=== PATIENT | female | born 1935 | race Caucasian/White ===

== ENCOUNTER 2019-03-29 08:05 | Inpatient (IN) ==
[~2019-03-29 08:05] MED LIST: DILAUDID IV ONE; ZOFRAN IV ONE
--- NOTE | 2019-03-29 08:15 | PROVIDER DOCUMENTATION ---
HPI-General Adult - General Chief Complaint: Fall Stated Complaint: BROKEN WRIST Time Seen by Provider: 03/29/19 08:05 Source: patient, family, EMS Allergies/Adverse Reactions: Patient Allergies Allergy/AdvReac Type Severity Reaction Status Date / Time No Known Allergies Allergy Verified 03/29/19 08:03 Home Medications: Home Medication List Medication Instructions Recorded Confirmed Last Taken Type Digoxin [Digitek] 125 mcg PO DAILY 04/02/18 03/29/19 Unknown History Diltiazem HCl [Diltiazem ER] 180 mg PO DAILY 04/02/18 03/29/19 Unknown History Hydrochlorothiazide 12.5 mg PO DAILY 04/02/18 03/29/19 Unknown History Montelukast Sodium [Singulair] 10 mg PO DAILY 04/02/18 03/29/19 Unknown History Warfarin Sodium [Jantoven] 1.5 tab PO DAILY 07/25/18 03/29/19 Unknown History - History of Present Illness -Gen Adult Nature of Presenting Problems: PT IS A 83 Y/O FEMALE WHO PRESENTS WITH C/O FALL AND OPEN FRACTURE OF R FOREARM. PER THE PT AND EMS, PT FELL AT HOME AND TRIED TO CATCH HER FALL AND PUT ALL HER WEIGHT ON THE R HAND. PT HAS A OPEN BLEEDING WOUND ON THE DISTAL R FOREARM. THE EMS WAS TRING TO PU A SPLINT AND DURING THE PROCESS THE PT GOT A MINOR CUT ON HER R EYEBROW. DENIES ANY HEAD INJURY OR LOC. DENIES ANY NECK PAIN OR BACK PAIN OR CP OR SOB. THE EMS OBSERVED HER R LEG IS SHORTENED AND ROTATED, BUT THE PT WAS ABLE TO WALK TO THE WHEEL CHAIR. PT WAS ADMINISTERED 100 MCG OF F[place]L ENROUTE. DENIES ANY NAUSEA OR VOMITING OR DIZZINESS OR LIGHTHEADEDNESS. Location of Pain/Injury: reports: upper extremity (R FOREARM, WRIST), lower extremity (R HIP) Pain Radiation: reports: no radiation Quality of Pain: reports: sharp Severity: reports: severe Onset/Duration: reports: just prior to arrival Timing: reports: still present Context/Activities at Onset: reports: light activity Modifying Factors: improves with: immobilization, rest. worse with: movement Associated Symptoms: denies: chest pain, cough, fever/chills, genitourinary problems, headaches, heartburn, nausea, shortness of breath, vomiting Similar Symptoms Previously?: No Recently seen or treated by another doctor?: No Review of Systems - Adult - REVIEW OF SYSTEMS - ADULT ROS:: ROS per family Constitutional: reports: no symptoms reported Eyes: reports: no symptoms reported Ears, Nose, Mouth & Throat: reports: no symptoms reported Cardiovascular: reports: no symptoms reported Respiratory: reports: no symptoms reported Gastrointestinal: reports: no symptoms reported Genitourinary: reports: no symptoms reported Musculoskeletal: reports: see HPI Integumentary: reports: see HPI Neurological: reports: no symptoms reported Psychiatric: reports: no symptoms reported Endocrine: reports: no symptoms reported Hematologic/Lymphatic: reports: no symptoms reported Allergic/Immunologic: reports: no symptoms reported Past History - Adult - PAST MEDICAL HISTORY-ADULT Review of Records: reports: Old Records Reviewed, Nursing Assessment Review, Medications Reviewed, Social history reviewed & non-contributory. Major Childhood Illnesses: reports: denies history Cardiovascular: reports: A-Fib, HTN Respiratory: reports: denies history Gastrointestinal: reports: cancer (colon) Obstetrical/Gynecological: reports: denies history Genitourinary: reports: denies history Musculoskeletal: reports: denies history Neurological: reports: Alzheimer's, dementia Endocrine/Immune: reports: denies history Other Conditions: reports: denies history - PRIOR SURGERIES/PROCEDURES Surgical/Procedure History: reports: appendectomy, hernia repair - IMMUNIZATION STATUS Childhood Immunizations: See Nurse Assessment Flu Vaccine: See Nurse Assessment - FAMILY HISTORY Family History: reviewed, not pertinent Physical Exam-General - PHYSICAL EXAM-ADULT Initial Vital Signs Reviewed: Yes - CONSTITUTIONAL General Appearance: severe distress - EYES Eyes: PERRL/EOMI - HEAD, EARS, NOSE, MOUTH & THROAT HENMT: normocephalic/atraumatic, moist mucous membranes, normal ENT inspection, TMs normal, pharynx normal - NECK Neck: non-tender, full range of motion, supple - RESPIRATORY Respiratory: chest non-tender, lungs clear, normal breath sounds, no respiratory distress, no accessory muscle use - CARDIOVASCULAR Cardiovascular: normal peripheral pulses, regular rate, rhythm, no edema, no murmur - GASTROINTESTINAL (ABDOMEN) Abdominal Exam: non tender, soft - MUSCULOSKELETAL Back Exam: no vertebral tenderness Extremity: other (DEFORMITY OF R FOREARM WITH OPEN FRACTURE. DECREASED ROM IN THE R HIP. R LEG SHORTENED AND EXTERNALLY ROTATED.) Peripheral Pulses: radial (R): 2+, radial (L): 2+, dorsalis-pedis (R): 2+, dorsalis-pedis (L): 2+ - SKIN Integumentary: ecchymosis, swelling, other (HEMATOMA AND LACERATION/PUNCTURE WOUND WITH BONE STICKING OUT OF IT AND OOZING OF BLOOD OF THE R DISTAL FOREARM.) - NEUROLOGIC Neurologic: grossly normal - PSYCHIATRIC Psych/Mental Status: normal mood/affect Progress - PLAN OF CARE/RESULTS Progress/Plan/Lab Results: Vital Signs - 8 hr 03/29/19 08:02 Temperature 97.8 F Pulse Rate 87 Respiratory Rate 18 Blood Pressure 161/112 O2 Sat by Pulse Oximetry 97 Orders Category Date Time Status Nursing- Obtain EKG ONCE Care 03/29/19 07:58 Active WRIST COMPLETE RIGHT [RAD] Stat Exams 03/29/19 07:58 Ordered XRAY HIP W/PELVIS BILAT 3-4VWS [RAD] Stat Exams 03/29/19 08:13 Ordered CBC WITH ELECTRONIC DIFF [HEME] Stat Lab 03/29/19 07:58 Uncollected COMPREHENSIVE METABOLIC PANEL [CHEM] Stat Lab 03/29/19 07:58 Uncollected PROTIME WITH INR [COAG] Stat Lab 03/29/19 07:58 Uncollected PTT [COAG] Stat Lab 03/29/19 07:58 Uncollected Hydromorphone [Dilaudid] Med 03/29/19 08:03 Discontinued 1 mg IV NOW ONE Ondansetron [Zofran] Med 03/29/19 08:03 Discontinued 4 mg IV NOW ONE EKG [EKG] Stat Ther 03/29/19 07:58 Ordered Result Diagrams: 03/29/19 08:48 03/29/19 08:48 - CONSULTS/PCP/HOSPITALIST Notification #1 *Consult/PCP/Hospitalist*: DR BREWSTER Time Discussed: 08:55 Consult Disposition: Admit (ADVISED TO ADMIT TO HOSPITALIST.) #2 Consult: DR DUMONT Time Discussed: 09:09 Consult Disposition: Will see in ED #3 Consult: DR BREWSTER Time Discussed: 09:20 Reason/Comments: D/W DR BREWSTER, RECOMMENDED NOT TO REDUCE IF NV INTACT, SPLINT AND TRANSFER Procedures - SPLINTING Right Upper Extremity Pre-Procedure Neurovascular Exam: Intact Pre-Fabricated Splint: Arm Sling Splint Application (Hand-Made): Orthoglass, Sugar-Tong Applied By: ED Nurse Assisted By: ED Nurse Post Procedure Neurovascular Exam: Intact Departure - Departure Date of Disposition Decision: 03/29/19 Time of Disposition Decision: 09:10 DIAGNOSIS: Fx radius/ulna shaft-open, Fracture of neck of right femur Disposition: ADMITTED INPATIENT 09 Certified Medical Emergency: Emergent Condition: Stable - Critical Care Note This patient required my direct & personal management of CC.: No Attestation - Physician/ KARLY Attestation Patient care was provided by Advanced Practice Provider:: No The physician spent face to face time with patient:: Yes Advanced Practice Provider documentation review:: Supervising physician onsite and consulted in the evaluation and care of this patient. The physician did have a face to face encounter with the patient.
[2019-03-29] MEDS ORDERED: KEFZOL 2 GM/D5W 2 GM/50 ML IVPB IV ONE (08:49)
[2019-03-29] MEDS ORDERED: DILAUDID IV ONE (08:51)
--- NOTE | 2019-03-29 08:53 | Diag Imaging Result Doc PS360 ---
EXAM: XRAY HIP W/PELVIS BILAT 3-4VWS HISTORY: fall TECHNIQUE: Five views COMPARISON: None. FINDINGS: There is a right femoral neck fracture with varus angulation. No dislocation. No left hip fracture. There is osteopenia. There is degenerative arthropathy lower lumbar spine. Moderate constipation. IMPRESSION: Right femoral neck fracture. Electronically signed by Luna Cai 03/29/2019 8:51 AM
[2019-03-29] MEDS ORDERED: KEFZOL ONE (08:55)
[2019-03-29] MEDS ORDERED: KEFZOL 1 GM/D5W 0 GM/0 ML IVPB ONE (08:56)
--- NOTE | 2019-03-29 08:58 | Diag Imaging Result Doc PS360 ---
EXAM: WRIST COMPLETE RIGHT HISTORY: trauma TECHNIQUE: Two views COMPARISON: None. FINDINGS: There is a comminuted, open fracture of the distal radius and ulna with severe deformity. There is marked dorsal and lateral displacement of the distal fracture fragments. No dislocation of the wrist. IMPRESSION: Severely displaced, comminuted, open fractures of the distal radius and ulna. Electronically signed by Luna Cai 03/29/2019 8:55 AM
--- NOTE | 2019-03-29 09:00 | Diag Imaging Result Doc PS360 ---
EXAM: CHEST-1 VIEW HISTORY: fall TECHNIQUE: Single supine view chest x-ray COMPARISON: 07/25/2018 FINDINGS: There is cardiomegaly and mild fibrosis. Pulmonary vasculature is not congested. No infiltrate, effusion, or pneumothorax is appreciated. No obvious rib fractures. IMPRESSION: No acute cardiopulmonary abnormality is identified. Electronically signed by Luna Cai 03/29/2019 8:58 AM
[2019-03-29 09:12] LABS: BASO# 0.06 X1000 (0.0-0.2); BASO% 0.4 % (0.0-0.8); EOS# 0.36 X1000 (0.0-0.7); EOS% 2.4 % (0.0-10.0); HEMOGLOBIN 13.1 g/dL (12.0-16.0); IMM GRAN# 0.04 X1000 (0.0-0.04); IMM GRAN% 0.3 % (0.0-0.5); LYMPH# 2.63 X1000 (1.2-3.4); LYMPH% 17.7 % (20.5-51.1); MCH 30.3 PG (27-31); MCHC 33.6 g/dL (33-37); MCV 90.1 FL (81-99); MONO# 0.83 X1000 (0.11-0.59); MONO% 5.6 % (1.7-9.3); MPV 10.9 FL (7.4-10.4); NEUT# 10.96 X1000 (1.4-6.5); NEUT% 73.6 % (42.2-75.2); PLT 222 X1000 (130-400); RBC 4.33 XMIL (4.2-5.4); RDW 14.2 % (11.5-14.5); WBC 14.88 X1000 (4.8-10.8)
[2019-03-29 09:24] LABS: AGAP 12; ALBUMIN 4.1 g/dL (3.5-5.0); ALKALINE PHOSPHATASE 61 U/L (32-104); BUN 24 mg/dL (8-22); CALCIUM 9.3 mg/dL (8.8-10.2); CHLORIDE 103 mmol/L (98-107); COSMO 285; CREATININE 0.6 mg/dL (0.5-0.9); ESTIMATED GFR > 60; GLUCOSE 119 mg/dL (70-104); GOT 25 U/L (10-30); GPT 16 U/L (10-36); POTASSIUM 4.6 mmol/L (3.5-5.1); SODIUM 140 mmol/L (136-145); TCO2 25 mmol/L (25-35); TOTAL PROTEIN 7.1 g/dL (6.3-8.3)
[2019-03-29 09:29] LABS: INR 2.52; PROTIME 28.4 Seconds (11.0-16.0)
--- NOTE | 2019-03-29 09:37 | EKG Report ---
Test Performed on : 03/29/2019 09:05:41 AM Test Reason : surgery clearance Blood Pressure : / mmHG Vent. Rate : 096 BPM Atrial Rate : 102 BPM P-R Int : 000 ms QRS Dur : 106 ms QT Int : 344 ms P-R-T Axes : 000 063 244 degrees QTc Int : 434 ms Undetermined rhythm Marked ST abnormality, possible inferior subendocardial injury Abnormal ECG When compared with ECG of 25-JUL-2018 13:52, Current undetermined rhythm precludes rhythm comparison, needs review ST now depressed in Anterior leads Unconfirmed Result
--- NOTE | 2019-03-29 09:38 | ED EKG INTERP ---
This chart was entered by Jelly Whitney Scribe, acting as scribe for Cinthya Day MD. EKG Interpretation - EKG Time of EKG reading by physician:: 09:10 EKG Read and Signed by:: Cinthya Day EKG Interpretation (*Must complete 3 of following elements*): Abnormal Rate: 96 Rhythm: afib [place]: normal QRS: normal Prior EKG Comparison: unchanged from prior (03/29/19) Comments: marked st abnormality, poss inferior subendocardial injury Attestation - Physician/ KARLY Attestation Patient care was provided by Advanced Practice Provider:: No The physician spent face to face time with patient:: Yes Advanced Practice Provider documentation review:: Supervising physician onsite and consulted in the evaluation and care of this patient. The physician did have a face to face encounter with the patient. This chart was documented by the indicated scribe, (Jelly Whitney Scribe) and accurately reflects the services I performed and decisions made by me, Cinthya Day MD, as attested by the provider's signature.
[2019-03-29] MEDS ORDERED: VITAMIN K 10 MG in NS 50 ML IV ONE (10:24)
[2019-03-29] MEDS ORDERED: ZOFRAN IV PRN (10:24)
[2019-03-29] MEDS ORDERED: NS 1,000 ML IV SCH (10:30)
[2019-03-29] MEDS: PROTONIX IV SCH (10:30)
[2019-03-29] MEDS ORDERED: SODIUM CHLORIDE 0.9% INJ SCH (10:30)
[2019-03-29] MEDS ORDERED: TYLENOL PO PRN (11:39)
--- NOTE | 2019-03-29 11:40 | HISTORY AND PHYSICAL ---
CHIEF COMPLAINT: Fall, right wrist and right hip pain. HISTORY OF PRESENT ILLNESS: This is an 83-year-old female with a history of chronic atrial fibrillation, colon cancer, congestive heart failure, COPD, and hypertension. She presents to the emergency room after falling, complaining of right wrist and right hip pain. She was found to have an open, severely displaced comminuted open fracture to the distal radius and ulna, as well as a right femoral neck fracture. She denied any syncope, any chest pain, palpitations, any dizziness, any loss of consciousness. PAST MEDICAL HISTORY: 1. Chronic atrial fibrillation, on chronic anticoagulation. 2. Colon cancer. 3. Chronic obstructive pulmonary disease. 4. Congestive heart failure. 5. Hyperlipidemia. 6. Hypertension. PAST SURGICAL HISTORY: Appendectomy, hysterectomy, hernia repair, colon resection with removal of abdominal mass. SOCIAL HISTORY: She denies any alcohol, tobacco, or illicit drug use. ALLERGIES: No known drug allergies. HOME MEDICATIONS: 1. Digoxin 125 mcg p.o. daily. 2. Cardizem CD 180 mg p.o. daily. 3. Hydrochlorothiazide 12.5 mg p.o. daily. 4. Jantoven 4.5 mg p.o. daily. REVIEW OF SYSTEMS: Discussed with patient with pertinent positives as stated in the HPI. She denied any syncope or dizziness, any chest pain or palpitations, any shortness of breath, cough, fever, chills, night sweats, any nausea, vomiting, diarrhea, constipation, black or bloody vomitus or stools, any hematuria, dysuria, frequency, urgency. PHYSICAL EXAMINATION: GENERAL: This is an 83-year-old female who is lying in the bed, sedated, and in no distress. VITAL SIGNS: Blood pressure is 141/70, with a heart rate of 67, respirations are 20, oxygen saturations are 97-98% on 2 L nasal cannula. HEENT: Head is normocephalic, atraumatic. Mucous membranes are moist. NECK: Supple, with trachea midline. CARDIOVASCULAR: Irregularly irregular rate and rhythm. S1 and S2 are appreciated. She has bilateral lower extremity edema which is chronic. Peripheral pulses are palpable to left arm and bilateral lower extremities. Right arm is in a splint. Capillary refill <3 sec, blanching to fingers <10 sec PULMONARY: Breath sounds are clear with no increased work of breathing noted. Chest rises and falls symmetric with respiration. GASTROINTESTINAL: Abdomen is soft, nontender, nondistended, with bowel sounds in all 4 quadrants. GENITOURINARY: She has no suprapubic or CVA tenderness. NEUROLOGIC: She is sedated but she is oriented. Of note, she is hard of hearing. SKIN: Warm and dry. She is noted to have a little bruise and a small laceration to her right eyebrow. Right wrist is in a splint at the time of my exam and she does have bruising to her right lower extremity. LABORATORY DATA: WBC is 14.8, with hemoglobin 13.1, hematocrit 39, and platelets of 222,000. INR is 2.52 Sodium 140, potassium 4.6, BUN 24, creatinine 0.6, with a glucose of 119. Right wrist x- ray revealed severely displaced, comminuted open fractures to the distal radius and ulna. Hip and pelvis bilateral revealed right femoral neck fracture. Chest x-ray revealed no acute cardiopulmonary abnormality identified. ASSESSMENT AND PLAN: 1. Open, severely displaced, comminuted fractures to the distal radius and ulna. 2. Right femoral neck fracture. 3. Chronic atrial fibrillation. 4. Chronic obstructive pulmonary disease. 5. Hyperlipidemia. 6. Hypertension. 7. History of colon cancer. 8. Questionable congestive heart failure. PLAN: The patient will be NPO. She will be transferred to [facility] for Dr. Michaud for surgery and orthopedic following. We will keep sugar-tong to her right hand at present. continue antibiotics. n.p.o. digoxin level, stat type and screen, give 2 units of fresh frozen as well as 10 of vitamin K IV Dilaudid for pain, with Zofran for nausea. PPI, we will use Protonix. DVT prophylaxis, at present, she is anticoagulated with warfarin. assessment and plan discussed with Dr. Michaud per the emergency room physician. Assessment and plan discussed with Dr. Spivey. Further treatments pending hospital course. Dictated by PORTIA Yates for Gerson Spivey MD cc: PORTIA Yates MD [facility]
[2019-03-29] MEDS ORDERED: KEFZOL 1 GM/D5W 1 GM/50 ML IVPB IV ONE (13:42)
--- NOTE | 2019-03-29 14:04 | ORTHOPAEDICS CONSULTATION ---
DATE: 03/29/2019 CHIEF COMPLAINT: Right wrist pain and right hip pain. HISTORY OF PRESENT ILLNESS: Ms Kennedy is an 83-year-old female who is complaining of right wrist pain and right hip pain status post fall. She presented to the emergency department where radiographic findings revealed an open, displaced distal radius and ulnar fracture on the right and a displaced femoral neck fracture of her right hip. We are asked for further evaluation and treatment. Patient is on warfarin daily. We are asked for further evaluation and treatment regarding her right wrist and right hip. PAST MEDICAL HISTORY: See the admission history and physical. PAST SURGICAL HISTORY: See the admission history and physical. ALLERGIES: See the admission history and physical.. MEDICATIONS: See the admission history and physical. REVIEW OF SYSTEMS: Positive for right wrist and right hip pain. All others negative. PHYSICAL EXAMINATION: General: This is a well developed, elderly female. She is oriented and cooperative with the examination. She is in no acute distress. Vital Signs: Stable. She is afebrile. HEENT: Head is normocephalic, atraumatic. Neck: Supple. Respiratory: Breathing is nonlabored. Abdomen: Nondistended. Neurologic: Sensation of her right hand is intact. Sensation of her right lower extremity is intact. Musculoskeletal: Exam of her right forearm reveals deformity. She has good capillary refill of all fingers on the right. Exam of her right lower extremity also reveals deformity. Her leg appears to be shortened and externally rotated. IMAGIN. X-rays of her right hip reveal a displaced femoral neck fracture. 2. X-rays of her right wrist reveal displaced and angulated distal radius and ulnar fractures. ASSESSMENT: 1. Right open, displaced distal radius and ulnar fractures. 2. Right displaced femoral neck fracture. PLAN: Her INR at the time of admission was 2.4. Since then, she has received 2 units of fresh frozen plasma and 10 mg of vitamin K. We we are going to recheck her INR. Depending on what her INR is, we will proceed with a right anterior bipolar hemiarthroplasty. If her INR continues to be elevated, we will not proceed with surgery on the hip. Regardless of her INR, we will proceed with a ORIF of her right distal radius and ulna fractures tonight. Dr. Michaud discussed with the patient and family the risks and benefits of surgery, including the risk of anesthesia, , bleeding, infection, damage to tendons, nerves, ligaments, other imponderables were discussed with the patient. The patient wishes to proceed with operative management at this time. Dictated by SELENA Rogel for Lisandro Michaud MD cc: SELENA Rogel MD [facility] Cheatham, MD [facility]
[2019-03-29] MEDS ORDERED: MARCAINE 0.25% ONE (15:08)
[2019-03-29] MEDS ORDERED: NEOSPORIN G.U. IRRIGANT ONE (15:08)
[2019-03-29] MEDS ORDERED: DIPRIVAN 1% ONE (15:09)
[2019-03-29] MEDS ORDERED: KEFZOL 1 GM/D5W 1 GM/50 ML IVPB ONE (15:18)
[2019-03-29] MEDS ORDERED: FENTANYL ONE (16:52)
[2019-03-29] MEDS ORDERED: ZOFRAN ONE (18:05)
[2019-03-29] MEDS ORDERED: DECADRON ONE (18:05)
[2019-03-29] MEDS ORDERED: XYLOCAINE-MPF 2% ONE (19:17)
--- NOTE | 2019-03-29 20:30 | HISTORY AND PHYSICAL ---
ADDENDUM: Patient seen and examined by myself. Full note dictated and discussed with nurse practitioner. The patient is an 83-year-old very pleasant female who notes that she was at home and she fell. She started having right wrist pain and right hip pain. She was noted to have a right wrist fracture and a right femur fracture. She currently is on Coumadin. We will give her fresh frozen plasma to reduce this. We will transfer to [facility] and have Orthopedics evaluate and treat. cc: Gerson Spivey MD
--- NOTE | 2019-03-29 21:28 | OPERATIVE NOTE ---
PROCEDURE DATE: 03/29/2019 PREOPERATIVE DIAGNOSIS: Right open distal ulna fracture and comminuted distal ulna and radius fracture. 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 PROCEDURE: Irrigation and debridement of open wound over the ulna and open reduction internal fixation of the ulna and radius. ANESTHESIA: General. SURGEON: Lisandro Michaud MD CABLE TELEVISION ACCESS COORDINATOR: Jatin Anders MD. SECOND CABLE TELEVISION ACCESS COORDINATOR: Cornelio. BLOOD LOSS: Minimal. TOURNIQUET TIME: Approximately 2 hours. DESCRIPTION OF PROCEDURE: Patient was brought to the operative suite and placed in supine position. After successful administration of general anesthesia, a well-padded tourniquet was placed on the right proximal arm. Right upper extremity was prepped and draped in usual sterile fashion. The open wound was debrided and copiously irrigated with normal saline containing irrigant. A volar incision was then made sharply through the skin down to the flexor carpi radialis tendon, and then the tendon was retracted and dissected sharply through the tendon sheath down to the fracture site. The pronator quadratus was elevated off the radial border of the radius. The fracture was quite comminuted, and she had a previous malunion. It was reduced in a near anatomic type of position and then a Synthes distal radius plate was placed with 6 buttress screws distally and 4 bicortical screws proximally, 3 of them locking. The defect of the bone from the comminution was then injected with 2.5 mL of DBX. Attention was directed to the ulna. The incision was extended distally, and then the ulna styloid was reduced to the ulnar shaft and then was secured with a 2.0 plate with 3 screws distally and 3 screws proximally. Acceptable reduction was obtained on AP and lateral images. The wounds were again copiously irrigated. The skin edges were approximated with interrupted nylon. A sterile dressing and a well-padded sugar- tong splint was applied. The patient tolerated the procedure well without complication. At the end of the procedure, all counts were correct x2. The patient was transferred to the recovery room in stable condition. cc: Lisandro Michaud MD
[2019-03-29 22:05] LABS: INR 1.25; PROTIME 16.6 Seconds (11.0-16.0)
[2019-03-29] MEDS: NEXIUM IV SCH (22:42)
[2019-03-30] MEDS: OXY IR PO PRN ×3 (01:27→22:56)
[2019-03-30] MEDS: KEFZOL 2 GM/D5W 2 GM/50 ML IVPB IV SCH ×3 (02:54→18:16)
[2019-03-30] MEDS: PROTONIX IV SCH (05:39)
[2019-03-30 06:16] LABS: INR 1.19
[2019-03-30 06:22] LABS: HEMATOCRIT 36.6 % (37.0-47.0); LYMPH# 0.94 X1000 (1.2-3.4); LYMPH% 9.6 % (20.5-51.1); MCH 30.3 PG (27-31); MCHC 32.8 g/dL (33-37); MCV 92.4 FL (81-99); MONO# 0.68 X1000 (0.11-0.59); MONO% 6.9 % (1.7-9.3); NEUT# 8.22 X1000 (1.4-6.5); NEUT% 83.5 % (42.2-75.2); PLT 199 X1000 (130-400); RBC 3.96 XMIL (4.2-5.4); RDW 13.7 % (11.5-14.5); WBC 9.84 X1000 (4.8-10.8)
[2019-03-30 06:33] LABS: AGAP 10; ALB/GLOB RATIO 1.2; ALBUMIN 3.7 g/dL (3.5-5.0); ALKALINE PHOSPHATASE 61 U/L (32-104); BUN 15 mg/dL (8-22); CALCIUM 9.1 mg/dL (8.8-10.2); CHLORIDE 100 mmol/L (98-107); COSMO 280; CREATININE 0.6 mg/dL (0.5-0.9); ESTIMATED GFR > 60; GLUCOSE 136 mg/dL (70-104); GOT 29 U/L (10-30); GPT 16 U/L (10-36); POTASSIUM 4.1 mmol/L (3.5-5.1); SODIUM 139 mmol/L (136-145); TCO2 29 mmol/L (25-35); TOTAL BILIRUBIN 1.22 mg/dL (0.20-1.00); TOTAL PROTEIN 6.7 g/dL (6.3-8.3)
[2019-03-30] MEDS: COUMADIN PO SCH (08:33)
--- NOTE | 2019-03-30 08:58 | ORTHOPAEDICS PROGRESS NOTE ---
DATE: 03/30/2019 SUBJECTIVE: Ms Kennedy is an 83-year-old female who is postoperative day 1 from a right ORIF of her distal radius and ulnar fractures. She also continues to have a right displaced femoral neck fracture. She is doing well. She does complain of some pain in her right arm and right hip. OBJECTIVE: She is a well-developed, elderly female. She is alert, oriented, cooperative with the examination. She is in no acute distress. Her right arm is in a splint, is clean, dry and intact. She can move all fingers without any difficulty. She has good capillary refill of all fingers. Her right leg continues to be shortened and externally rotated. LABORATORY DATA: Her INR from this morning is 1.19. ASSESSMENT: 1. Stable postoperative day 1 from an open reduction and internal fixation, open right distal radius and ulnar fractures. 2. Right displaced femoral neck fracture. PLAN: We will plan to proceed with a right bipolar hemiarthroplasty tomorrow with Dr. Michaud. Dr. Michaud discussed with the patient the risks and benefits of surgery, including risk of anesthesia, , bleeding, infection, damage to tendons, nerves, ligaments other imponderables were discussed with the patient. The patient wishes to proceed with operative management at this time. Dictated by SELENA Rogel for Lisandro Michaud MD cc: SELENA Rogel MD
[2019-03-30] MEDS ORDERED: KEFZOL 1 GM/D5W 1 GM/50 ML IVPB IV ONE (09:14)
[2019-03-30] MEDS: HYDROCHLOROTHIAZIDE PO SCH (09:26)
[2019-03-30] MEDS: CARDIZEM LA PO SCH (09:26)
[2019-03-30] MEDS: SINGULAIR PO SCH (09:27)
[2019-03-30] MEDS: LANOXIN PO SCH (09:28)
[2019-03-30] MEDS: DILAUDID IV PRN ×4 (09:29→21:03)
[2019-03-30] MEDS: LR 1,000 ML IV SCH ×2 (09:43→12:22)
[2019-03-30] MEDS ORDERED: SODIUM CHLORIDE 0.9% 10 ML ONE (11:15)
[2019-03-30] MEDS: NEXIUM IV SCH (11:20)
[2019-03-30] MEDS: SODIUM CHLORIDE 0.9% INJ SCH (11:21)
[2019-03-30] MEDS ORDERED: CALMOSEPTINE OINTMENT TOP PRN (12:24)
--- NOTE | 2019-03-30 15:45 | ECHO REPORT ---
ORDER DATE: 03/30/2019 INDICATION: CHF, atrial fibrillation. FINDINGS: 1. The right atrium is mildly to moderately enlarged with a dimension of 4.1 cm. 2. Moderate to severe tricuspid regurgitation. The RV systolic pressure is 61 suggesting pulmonary hypertension. 3. Normal RV size and systolic function. 4. Mild to moderate pulmonic insufficiency. 5. Severe left atrial enlargement with a volume index of 48. 6. No mitral valve prolapse. No evidence of mitral stenosis. Mild mitral regurgitation. There is moderate mitral annular calcification. 7. Normal LV size, end-diastolic dimension of 5 cm. Normal wall thicknesses with a posterior and interventricular septal wall thickness of 0.9 cm each. Normal LV systolic function. Estimated EF is 65% with normal wall motion. 8. Aortic valve opens well. It is sclerotic. There is no stenosis and no insufficiency. 9. Aorta appears normal in visualized segments. 10. No pericardial effusion identified. cc: Ollie Zarco MD
--- NOTE | 2019-03-30 16:24 | PROGRESS NOTE ---
DATE: 03/30/2019 INTERVAL HISTORY: Patient still with some right arm and leg pain but reasonably well-controlled. Remains in atrial fibrillation but rate-controlled. Remains pleasantly confused. Has family at the bedside and discussed the case with them. No acute events overnight. No new complaints. REVIEW OF SYSTEMS: A 12-point review of systems negative except as per interval history. LABORATORY: WBC 9.8, hemoglobin 12.0, hematocrit 36.6, platelets 199. INR 1.19. Basic metabolic panel unremarkable aside from glucose 136, bilirubin 122. VITALS: T-max 98.8, pulse 83, respirations 16, blood pressure 126/49, O2 saturation 94% on room air. PHYSICAL EXAMINATION: General: No acute distress. Vital signs: As above. HEENT: Normocephalic, atraumatic. Moist mucous membranes. No cervical adenopathy. Cardiovascular: Irregular rhythm but normal rate. No rubs noted. Pulmonary: Clear to auscultation bilaterally. No wheezing, rales, or rhonchi. Abdomen: Soft, nontender, nondistended, bowel sounds positive. Extremities: Peripheral pulses intact. Right arm in heavy bandaging. No clubbing or cyanosis. Neurologic: Cranial nerves grossly intact. No focal deficits identified. Hard of hearing. Psychiatric: Normal mood and affect. Awake, alert, cooperative, and most responses are appropriate but oriented to person only. Skin: Small laceration healing. No new rashes or lesions noted. ASSESSMENT AND PLAN: 1. Open severely displaced comminuted fractures of the distal radius and ulna. Status post surgical repair yesterday. Management as per Orthopedics. 2. Right femoral neck fracture. Plan is for surgical repair tomorrow. Orthopedics following. 3. Chronic atrial fibrillation. Patient on Coumadin at home, which was reversed for her first surgery. INR remains normal. Will restart Coumadin tomorrow after her femur repair. Remains rate-controlled. 4. Chronic obstructive pulmonary disease. No sign of exacerbation at this time. Continue to monitor. Nebulizers if needed. 5. Hypertension. Continue home digoxin. Home hydrochlorothiazide continued initially but will go ahead and hold that given surgery tomorrow. 6. Questionable history of heart failure. The patient's medications do not suggest heart failure. Patient unaware of diagnosis of heart failure. No evidence for a diagnosis of heart failure found in the record. We will go ahead and get an echocardiogram to clarify but suspect that this is an error. 7. History of colon cancer in remission per patient. 8. Disposition. We will see how she does after her femur repair but suspect she will need rehab placement early next week.
[2019-03-30] MEDS: SEROQUEL PO PRN (20:58)
[2019-03-30] MEDS: MORPHINE IV PRN (22:57)
[2019-03-31] MEDS: LR 1,000 ML IV SCH ×2 (00:59→12:02)
[2019-03-31] MEDS: DILAUDID IV PRN (00:59)
[2019-03-31] MEDS: MORPHINE IV PRN ×4 (01:33→21:49)
[2019-03-31 06:40] LABS: INR 1.11; PROTIME 15.2 Seconds (11.0-16.0)
[2019-03-31 06:44] LABS: BASO# 0.02 X1000 (0.0-0.2); BASO% 0.2 % (0.0-0.8); EOS# 0.04 X1000 (0.0-0.7); EOS% 0.4 % (0.0-10.0); HEMATOCRIT 35.5 % (37.0-47.0); HEMOGLOBIN 11.3 g/dL (12.0-16.0); IMM GRAN# 0.05 X1000 (0.0-0.04); IMM GRAN% 0.4 % (0.0-0.5); LYMPH# 1.35 X1000 (1.2-3.4); MCH 30.1 PG (27-31); MCHC 31.8 g/dL (33-37); MCV 94.4 FL (81-99); MONO% 12.5 % (1.7-9.3); MPV 11.2 FL (7.4-10.4); NEUT# 8.36 X1000 (1.4-6.5); NEUT% 74.5 % (42.2-75.2); PLT 156 X1000 (130-400); RBC 3.76 XMIL (4.2-5.4); RDW 13.9 % (11.5-14.5); WBC 11.22 X1000 (4.8-10.8)
[2019-03-31 07:01] LABS: AGAP 10; ALB/GLOB RATIO 1.2; ALBUMIN 3.2 g/dL (3.5-5.0); ALKALINE PHOSPHATASE 57 U/L (32-104); BUN 20 mg/dL (8-22); CALCIUM 8.8 mg/dL (8.8-10.2); CHLORIDE 96 mmol/L (98-107); COSMO 275; CREATININE 0.6 mg/dL (0.5-0.9); ESTIMATED GFR > 60; GLUCOSE 109 mg/dL (70-104); GOT 29 U/L (10-30); GPT 10 U/L (10-36); POTASSIUM 3.8 mmol/L (3.5-5.1); SODIUM 136 mmol/L (136-145); TCO2 30 mmol/L (25-35); TOTAL BILIRUBIN 0.95 mg/dL (0.20-1.00); TOTAL PROTEIN 5.9 g/dL (6.3-8.3)
[2019-03-31] MEDS ORDERED: KEFZOL 1 GM/D5W 1 GM/50 ML IVPB IV ONE ×2 (09:00→09:39)
--- NOTE | 2019-03-31 09:23 | ORTHOPAEDICS PROGRESS NOTE ---
DATE: 03/31/2019 SUBJECTIVE: Ms. Kennedy has been agitated over the last 48 hours. Has not been sleeping well. Has been difficult for the family to manage. She has tried to take of the splint and get out of her bed. Today, however, she seems to be resting comfortably and is asleep in the bed. OBJECTIVE: General: She is a well-developed, well-nourished female. She is cooperative with exam. Her splint is intact for now. She has no interval change in her exam from her leg. IMPRESSION: Status post open reduction internal fixation right wrist with right displaced femoral neck fracture. PLAN: We will plan to proceed with a bipolar hemiarthroplasty on the right later today. cc: MD Litzy Tran ?
[2019-03-31] MEDS: SODIUM CHLORIDE 0.9% INJ SCH (11:51)
[2019-03-31] MEDS: NEXIUM IV SCH (11:51)
[2019-03-31] MEDS ORDERED: DIPRIVAN 1% ONE (13:21)
[2019-03-31] MEDS ORDERED: FENTANYL ONE (13:21)
[2019-03-31] MEDS ORDERED: XYLOCAINE-MPF 2% ONE (13:22)
[2019-03-31] MEDS ORDERED: SODIUM CHLORIDE 0.9% 20 ML ONE (14:08)
[2019-03-31] MEDS ORDERED: NEO-SYNEPHRINE ONE (14:08)
[2019-03-31] MEDS ORDERED: KEFZOL 1 GM/D5W 1 GM/50 ML IVPB ONE (14:27)
--- NOTE | 2019-03-31 14:45 | PROGRESS NOTE ---
DATE: 03/31/2019 INTERVAL HISTORY: The patient with reasonably controlled right arm and leg pain. Currently n.p.o. for surgical repair of her right femur later today. No new complaints. No acute events overnight. REVIEW OF SYSTEMS: Twelve point review of systems negative except as per interval history. LABS: WBC 11.2, hemoglobin 11.3, hematocrit 35.5, platelets 152. INR 1.11. Sodium 136, potassium 3.8, BUN 20, creatinine 0.6, glucose 109, bilirubin 0.95. VITALS: T-max 98.6 degrees, pulse 97, blood pressure 146/66, O2 saturation 91% on room air. PHYSICAL EXAMINATION: General: No acute distress. Vitals: As above. HEENT: Normocephalic, atraumatic. Moist mucous membranes. No cervical adenopathy. Cardiovascular: Normal rate but irregular rhythm. Pulmonary: Clear to auscultation bilaterally. No wheezing, rales, or rhonchi. Abdomen: Soft, nontender, nondistended. Bowel sounds positive. Extremities: Peripheral pulses intact. Right arm remains heavily bandaged. No clubbing or cyanosis. Neurologic: Cranial nerves grossly intact. No focal deficits identified aside from being hard of hearing. Psychiatric: Normal mood and affect. Asleep but arousable, alert, cooperative. Skin: No new rashes or lesions noted. ASSESSMENT AND PLAN: 1. Severely displaced comminuted fracture of distal radius and ulna, status post surgical repair 03/29/2019. Management as per Orthopedics, who are following. 2. Right femoral neck fracture. The patient NPO for surgical repair later today. Orthopedics following. Likely to rehab next week. 3. Chronic atrial fibrillation. The patient on Coumadin at home, which was reversed for her for surgery. INR remains within normal limits. We will restart Coumadin tonight and start Lovenox in the morning to cover until Coumadin is therapeutic. 4. Chronic obstructive pulmonary disease. No sign of exacerbation at this time. Continue to monitor, nebulizers available as needed. 5. Hypertension. Continue home digoxin. Holding home hydrochlorothiazide currently given NPO status, but will likely restart that tomorrow if blood pressure remains stable. 6. History of colon cancer in remission per patient and family. 7. Questionable history of heart failure. Patient's medications all suggest heart failure. Nothing in the medical record to confirm heart failure. Checking echo to confirm but suspect this is not accurate. Echo obtained and does show some moderate pulmonary hypertension with pressure of 61, but no clear heart failure. 8. Disposition: We will see how she does with Physical Therapy after her femur repair today but strongly suspect she will need replacement sometime early next week.
[2019-03-31] MEDS ORDERED: CYKLOKAPRON 1,000 MG/NS 1,000 MG/100 ML IVPB ONE (14:52)
[2019-03-31] MEDS ORDERED: NEOSPORIN G.U. IRRIGANT ONE (14:52)
[2019-03-31] MEDS ORDERED: DURAMORPH ONE (14:52)
[2019-03-31] MEDS ORDERED: MARCAINE 0.25% PF ONE (14:52)
[2019-03-31] MEDS ORDERED: SODIUM CHLORIDE 0.9% ONE (14:52)
[2019-03-31] MEDS ORDERED: EXPAREL 1.3% ONE (14:52)
[2019-03-31] MEDS ORDERED: TORADOL ONE ×2 (14:52→15:16)
[2019-03-31] MEDS ORDERED: DECADRON ONE (15:16)
[2019-03-31] MEDS ORDERED: ZOFRAN ONE (15:16)
[2019-03-31] MEDS ORDERED: OFIRMEV 1000 MG/ISOTONIC SOLN 1,000 MG/100 ML BOTTLE ONE (15:16)
[2019-03-31] MEDS ORDERED: BRIDION ONE (16:11)
[2019-03-31] MEDS ORDERED: VANCOMYCIN ONE (16:12)
[2019-03-31] MEDS ORDERED: ULTRAM PO PRN (17:21)
[2019-03-31] MEDS ORDERED: MORPHINE IV PRN ×2 (17:30)
[2019-03-31] MEDS ORDERED: OXY IR PO PRN (17:30)
[2019-03-31] MEDS ORDERED: ZOFRAN ODT PO PRN (17:30)
[2019-03-31] MEDS ORDERED: ZOFRAN IV PRN (17:30)
[2019-03-31] MEDS ORDERED: MILK OF MAGNESIA PO PRN (17:30)
[2019-03-31] MEDS: SINGULAIR PO SCH (17:55)
[2019-03-31] MEDS: CARDIZEM LA PO SCH (17:55)
[2019-03-31] MEDS: LANOXIN PO SCH (17:55)
[2019-03-31] MEDS: NS 1,000 ML IV SCH (18:01)
--- NOTE | 2019-03-31 20:10 | OPERATIVE NOTE ---
PROCEDURE DATE: 03/31/2019 PREOPERATIVE DIAGNOSIS: Right displaced femoral neck fracture. POSTOPERATIVE DIAGNOSIS: Right displaced femoral neck fracture. PROCEDURE: Right bipolar hemiarthroplasty using DePuy Corail size 16 standard offset with a +1.5, 28 mm head and a 49 mm bipolar head, and 2 cables. ANESTHESIA: General. SURGEON: Lisandro Michaud MD INDUSTRIAL MANAGEMENT TEACHER: Khadijah Duncan PA-C BLOOD LOSS: 700 mL DESCRIPTION OF PROCEDURE: The patient was brought to the operating suite and placed in supine position. After satisfactory administration of general anesthesia, the patient was placed on the OSI table in the usual position for right hip. The right hip was then prepped and draped in the usual sterile fashion. A longitudinal incision was made beginning 3 cm distal and 3 cm lateral to the anterior superior iliac spine, extending distally and slightly laterally 8 cm. I dissected sharply through the skin and subcutaneous tissue down to the tensor fascia. The tensor fascia was incised and dissected bluntly down to the deep tensor fascia. The deep tensor fascia was incised and circumflex vessels were electrocauterized, exposing the anterior capsule. A T capsulotomy was performed, exposing the femoral neck and the fracture. The femoral neck cut was made with the oscillating saw. The femoral head was removed with a power corkscrew. The head was measured to 49 mm. A 49 mm head was given a trial and found be excellent fit. Attention was then directed to the femur. The femur was externally rotated, extended, adducted and elevated out of the wound with the hook on the OSI bed. The lateral neck was rongeured. The canal was serially broached to a size 16 standard-offset Corail stem. There was found to be a crack in the femur, so 2 cables were placed to supplement the fixation. The 16 standard offset with a +1.5 neck length 49 mm head was given a trial. Found be excellent leg length, stability of the hip, offset and fit and fill of the stem. The trial was then removed and the definitive stem was placed along with the head and bipolar, then it was reduced. Excellent placement of the hip was obtained. There was excellent offset, fit and fill of the stem and leg length. The hip was copiously irrigated with normal saline containing G.U. irrigant and Vashe irrigation, then it was infiltrated with Exparel including the posterior capsule, anterior capsule, anterior musculature and subcutaneous tissue. The anterior capsule was repaired with 0 V-Loc suture, then a drain was placed deep to tensor fascia and buried around the stem neck. Then the tensor fascia was closed with 0 V-Loc suture. Skin edges were approximated with 2-0 Vicryl and closed with Monocryl and Prineo. A sterile dressing was applied. The patient tolerated the procedure well, without complication. At the end the procedure all counts were correct x2. The patient was transferred to the recovery room stable condition. cc: Lisandro Michaud MD
[2019-03-31] MEDS: COLACE PO SCH (21:49)
[2019-03-31] MEDS: PERIDEX MT SCH (21:49)
[2019-03-31] MEDS: TYLENOL PO SCH (21:49)
[2019-03-31] MEDS: KEFZOL 1 GM/D5W 1 GM/50 ML IVPB IV SCH (22:53)
[2019-04-01] MEDS: LOVENOX SUBQ SCH (05:32)
[2019-04-01] MEDS: NS 1,000 ML IV SCH ×2 (05:34→16:51)
[2019-04-01] MEDS: TYLENOL PO SCH ×5 (05:36→20:44)
[2019-04-01 06:40] LABS: INR 1.15; PROTIME 15.6 Seconds (11.0-16.0)
[2019-04-01 06:43] LABS: HEMATOCRIT 38.1 % (37.0-47.0); HEMOGLOBIN 12.5 g/dL (12.0-16.0); IMM GRAN# 0.02 X1000 (0.0-0.04); IMM GRAN% 0.2 % (0.0-0.5); LYMPH# 0.78 X1000 (1.2-3.4); LYMPH% 6.7 % (20.5-51.1); MCH 29.8 PG (27-31); MCHC 32.8 g/dL (33-37); MCV 90.9 FL (81-99); MONO# 0.86 X1000 (0.11-0.59); MONO% 7.4 % (1.7-9.3); MPV 11.3 FL (7.4-10.4); NEUT% 85.7 % (42.2-75.2); PLT 156 X1000 (130-400); RBC 4.19 XMIL (4.2-5.4); RDW 13.5 % (11.5-14.5); WBC 11.56 X1000 (4.8-10.8)
[2019-04-01 06:51] LABS: AGAP 11; BUN 22 mg/dL (8-22); CALCIUM 8.4 mg/dL (8.8-10.2); CHLORIDE 101 mmol/L (98-107); COSMO 282; CREATININE 0.6 mg/dL (0.5-0.9); ESTIMATED GFR > 60; GLUCOSE 122 mg/dL (70-104); POTASSIUM 4.2 mmol/L (3.5-5.1); SODIUM 139 mmol/L (136-145); TCO2 27 mmol/L (25-35)
[2019-04-01] MEDS: COLACE PO SCH ×3 (08:18→20:45)
[2019-04-01] MEDS: PERIDEX MT SCH ×3 (08:18→20:45)
[2019-04-01] MEDS: SINGULAIR PO SCH (08:18)
[2019-04-01] MEDS: PEPCID PO SCH (08:20)
[2019-04-01] MEDS: COUMADIN PO SCH (08:20)
[2019-04-01] MEDS: KEFZOL 1 GM/D5W 1 GM/50 ML IVPB IV SCH (08:20)
[2019-04-01] MEDS: CARDIZEM LA PO SCH (08:20)
[2019-04-01] MEDS: LANOXIN PO SCH (08:21)
[2019-04-01] MEDS: HYDROCHLOROTHIAZIDE PO SCH (08:28)
--- NOTE | 2019-04-01 09:03 | ORTHOPAEDICS PROGRESS NOTE ---
DATE: 04/01/2019 SUBJECTIVE: Ms. Kennedy is lying in bed this morning. Overall pain seems controlled. OBJECTIVE: Right upper extremity: Her splint is clean, dry, and intact. Her head intrinsics are intact. She has good sensation to light touch to the fingers and good capillary refill to all the fingers. Right lower extremity: The hip dressing is clean, dry, and intact. She has good dorsiflexion and plantarflexion of the foot. ASSESSMENT: 1. Status post right open reduction and internal fixation of distal radius and ulna fracture. 2. Status post right hip hemiarthroplasty. PLAN: Ms. Kennedy had a little over 300 mL out of her Hemovac drain so we will keep it for today and we will plan on pulling it tomorrow. She is weightbear as tolerated to the right lower extremity. We will get her up moving, sitting in the chair today. She will continue to be in the right upper extremity splint. She is nonweightbearing on that side for now indication. cc: Robert Grewal MD
--- NOTE | 2019-04-01 15:45 | PROGRESS NOTE ---
DATE: 04/01/2019 INTERVAL HISTORY: The patient's pain is well controlled. Status post repair of her right femur fracture yesterday. No new complaints. No acute events overnight. REVIEW OF SYSTEMS: Twelve point review of systems is negative except as per interval history. LABS: WBC is 11.5, hemoglobin 12.5, hematocrit 38.1, platelets 156,000. INR 1.15. Basic metabolic panel unremarkable. VITALS: T-max 98.6, pulse 77, blood pressure 126/54, O2 saturation 99% on 2 L by nasal cannula. PHYSICAL EXAMINATION: General: No acute distress. Vitals: As above. HEENT: Normocephalic, atraumatic. Moist mucous membranes. No cervical adenopathy. Cardiovascular: Irregular rhythm but normal rate. Soft murmur noted and stable. Pulmonary: Clear to auscultation bilaterally. No wheezing, rales, or rhonchi. Abdomen: Soft, nontender, nondistended. Bowel sounds positive. Extremities: Peripheral pulses intact. Right arm remains splinted and heavily bandaged. Right leg with bandage in place. No clubbing or cyanosis. Neurologic: Cranial nerves grossly intact. No focal deficits. Also limited mobility with right limbs. Hard of hearing, which is stable. Psychiatric: Normal mood and affect. Awake, alert, cooperative. Skin: No new rashes or lesions noted. ASSESSMENT AND PLAN: 1. Displaced and comminuted fracture of distal radius and ulna, status post surgical repair 03/29/2019. Management as per Orthopedics who are following. No weight on this arm. 2. Right femoral neck fracture, status post surgical repair 03/30/2019. Doing well. Starting with physical therapy and likely to rehab next week. 3. Chronic atrial fibrillation. The patient on Coumadin at home, which was reversed for her surgeries. Coumadin now restarted. On prophylactic Lovenox until Coumadin is therapeutic. 4. Chronic obstructive pulmonary disease. No sign of exacerbation at this time. Continue to monitor. 5. Hypertension. Continue home digoxin. Restart home hydrochlorothiazide, as her blood pressure remains mild to moderately elevated. 6. History of colon cancer, in remission per patient and family. 7. Pulmonary hypertension. The patient reportedly had history of heart failure. Echo obtained shows significant pulmonary hypertension with pressure 61 which was likely causing her volume issues, but no darren heart failure. 8. Disposition. We will see how she does with physical therapy, but likely to rehab early next week.
[2019-04-01] MEDS: MORPHINE IV PRN ×2 (20:16→23:15)
[2019-04-01] MEDS: NEXIUM IV SCH ×2 (20:22→20:46)
[2019-04-01] MEDS: SEROQUEL PO PRN (22:30)
[2019-04-02] MEDS: MORPHINE IV PRN (02:45)
[2019-04-02] MEDS ORDERED: HALDOL IV ONE (03:15)
[2019-04-02] MEDS: LOVENOX SUBQ SCH (06:27)
[2019-04-02 06:36] LABS: BASO# 0.02 X1000 (0.0-0.2); BASO% 0.2 % (0.0-0.8); EOS# 0.04 X1000 (0.0-0.7); EOS% 0.4 % (0.0-10.0); HEMATOCRIT 33.2 % (37.0-47.0); HEMOGLOBIN 10.8 g/dL (12.0-16.0); IMM GRAN# 0.03 X1000 (0.0-0.04); IMM GRAN% 0.3 % (0.0-0.5); LYMPH# 1.36 X1000 (1.2-3.4); LYMPH% 13.7 % (20.5-51.1); MCH 29.9 PG (27-31); MCHC 32.5 g/dL (33-37); MONO# 1.21 X1000 (0.11-0.59); MONO% 12.1 % (1.7-9.3); MPV 10.5 FL (7.4-10.4); NEUT% 73.3 % (42.2-75.2); PLT 175 X1000 (130-400); RBC 3.61 XMIL (4.2-5.4); RDW 13.7 % (11.5-14.5); WBC 9.96 X1000 (4.8-10.8)
[2019-04-02] MEDS: TYLENOL PO SCH ×4 (06:49→23:34)
[2019-04-02] MEDS: SODIUM CHLORIDE 0.9% INJ SCH ×2 (06:50→21:38)
[2019-04-02 09:06] LABS: INR 1.08; PROTIME 14.9 Seconds (11.0-16.0)
--- NOTE | 2019-04-02 13:45 | ORTHOPAEDICS PROGRESS NOTE ---
DATE: 04/02/2019 SUBJECTIVE: Ms. Kennedy is sitting up in a bedside chair today. Overall feeling okay. She did well yesterday sitting in the chair for several hours. Today she is not liking it as much. OBJECTIVE: Right upper extremity examination, splint is clean, dry, and intact. She remains to have good sensation to the fingers and good movement of her fingers. Right lower extremity examination, I removed the Hemovac drain today without complication. Dressing remained clean, dry, and intact. She is neurovascularly intact right lower extremity. ASSESSMENT: 1. Status post open reduction and internal fixation, right distal ulna and radius. 2. Right hip hemiarthroplasty. PLAN: I think Ms. Kennedy overall is doing well. She has had a big injury and it is going to take her a long time to recover from these injuries. emergency services director involved for rehab placement. She is weight bear as tolerated right lower extremity and no weightbearing right upper extremity. cc: Robert Grewal MD
[2019-04-02] MEDS: PERIDEX MT SCH ×2 (15:04→23:35)
[2019-04-02] MEDS: SINGULAIR PO SCH (15:04)
[2019-04-02] MEDS: COLACE PO SCH ×2 (15:05→23:34)
[2019-04-02] MEDS: COUMADIN PO SCH (15:05)
[2019-04-02] MEDS: CARDIZEM LA PO SCH (15:05)
[2019-04-02] MEDS: OXY IR PO PRN ×2 (15:06→18:42)
[2019-04-02] MEDS: PEPCID PO SCH (15:06)
[2019-04-02] MEDS: HYDROCHLOROTHIAZIDE PO SCH (15:07)
[2019-04-02] MEDS: LANOXIN PO SCH (15:07)
--- NOTE | 2019-04-02 15:57 | PROGRESS NOTE ---
DATE: 04/02/2019 INTERVAL HISTORY: The patient's pain is reasonably well controlled. Complains only of difficulty sleeping last night. No acute events overnight. REVIEW OF SYSTEMS: 12-point review of systems negative except as per interval history. LABS: WBC 9.9, hemoglobin 10.8, hematocrit 33.2, INR 1.08. VITALS: T-max 98.6 degrees, pulse 98, respirations 16, blood pressure 129/69, O2 saturation 95% on 3 L by nasal cannula. PHYSICAL EXAMINATION: General: No acute distress. Vitals: As above. HEENT: Normocephalic, atraumatic. Moist mucous membranes. No cervical adenopathy. Neck: Right neck soft tissue mass unchanged. CV: Normal rate but irregular rhythm. Murmur, left upper sternal border, stable. Pulmonary: Clear to auscultation bilaterally. No wheezes, rales, or rhonchi. Abdomen: Soft, nontender, nondistended. Bowel sounds positive. Extremities: Peripheral pulses intact. Right arm stable with splinting and heavy bandaging. No clubbing or cyanosis. Neurologic: Cranial nerves grossly intact. No focal deficits. Limited mobility with right limbs. Hard of hearing, which is unchanged. Psychiatric: Normal mood and affect. Awake, alert, cooperative. Skin: No new rashes or lesions noted. ASSESSMENT AND PLAN: 1. Displaced and comminuted fracture of distal radius and ulna, status post surgical repair 03/29/2019. Management as per Ortho, who is following. No weight on this arm. 2. Right femoral neck fracture status post surgical repair 03/30/2019. Doing well. Working with Physical Therapy slowly. Likely to rehab in the next 24 to 48 hours. 3. Chronic atrial fibrillation. The patient on Coumadin at home with therapeutic INR on presentation. Coumadin reversed for surgery. Coumadin has been restarted. INR remains quite low. Continue prophylactic Lovenox until Coumadin is therapeutic. If INR continues to not rise, then may have to increase dose tomorrow. 4. Chronic obstructive pulmonary disease. No sign of exacerbation at this time. Continue to monitor. 5. Hypertension. Continue home hydrochlorothiazide and diltiazem and monitor. 6. History of colon cancer in remission per patient and family. 7. Pulmonary hypertension with pulmonary pressures 61 on last check. 8. Disposition. Likely to rehab in the next day or 2.
[2019-04-02] MEDS: NEXIUM IV SCH (21:38)
[2019-04-03] MEDS: LOVENOX SUBQ SCH (06:52)
[2019-04-03 06:53] LABS: HEMATOCRIT 37.4 % (37.0-47.0); HEMOGLOBIN 11.9 g/dL (12.0-16.0)
[2019-04-03] MEDS: OXY IR PO PRN ×2 (06:54→17:47)
[2019-04-03 07:00] LABS: INR 1.1; PROTIME 15.1 Seconds (11.0-16.0)
[2019-04-03] MEDS: TYLENOL PO SCH ×2 (08:08→12:07)
[2019-04-03] MEDS ORDERED: MIRALAX PO SCH (10:00)
--- NOTE | 2019-04-03 11:32 | DISCHARGE SUMMARY ---
ADMISSION DATE: 03/29/2019 DISCHARGE DATE: 04/03/2019 PRIMARY CARE PHYSICIAN: Listed as none. ADMISSION DIAGNOSES: 1. Open severely displaced comminuted fractures of the distal radius and ulna. 2. Right femoral neck fracture. 3. Chronic atrial fibrillation. 4. Chronic obstructive pulmonary disease. 5. Hyperlipidemia. 6. Hypertension. 7. History of colon cancer. 8. Questionable congestive heart failure. DISCHARGE DIAGNOSES: 1. Displaced and comminuted fracture of the distal radius and ulna, status post surgical repair 03/29/2019. 2. Right femoral neck fracture status post surgical repair 03/30/2019. 3. Chronic atrial fibrillation. 4. Chronic obstructive pulmonary disease. 5. Hypertension. 6. History of colon cancer in remission. 7. Pulmonary hypertension with pulmonary pressure of 61 when last checked. CONSULTATIONS: Orthopedics. SUMMARY OF FINDINGS: This is an 83-year-old female who presented to the emergency room after falling, complaining of right wrist and right hip pain. She was found to have an open severely displaced comminuted open fracture of the distal radius and ulna as well as a right femoral neck fracture. Denied any syncope, chest pain, palpitations, dizziness, or any loss of consciousness. She was transferred to the [facility] from [facility] for Orthopedic consultation. She was held NPO initially. She was given 2 units of fresh frozen plasma as well as 10 mg of vitamin K. She was seen by Orthopedics and taken to surgery for repair on 03/29/2019 and 03/30/2019, and tolerated it well. We did an echocardiogram on 03/30/2019 that showed an ejection fraction of 65% with normal LV size. Physical Therapy has been consulted, and following the patient doing well. The patient was on Coumadin at home with a therapeutic INR on presentation. Coumadin again was reversed for the surgery. The Coumadin has now been restarted. INR remains low, and will require a bridge of Lovenox until INR becomes therapeutic again, but it is felt that she can safely be discharged to rehab today. DISCHARGE MEDICATIONS: 1. Digoxin 125 mcg p.o. daily. 2. Cardizem 180 mg p.o. daily. 3. Hydrochlorothiazide 12.5 mg p.o. daily. 4. Montelukast sodium 10 mg p.o. daily. 5. Oxy IR 10 mg p.o. q.3 hours p.r.n. and 5 mg p.o. q.3 hours p.r.n. 6. MiraLAX 17 g p.o. b.i.d. 7. Seroquel 12.5 mg p.o. t.i.d. p.r.n. 8. Warfarin 3 mg 1-1/2 tab p.o. daily. 9. Lovenox 1 mg/kg 70 mg subcutaneous b.i.d. until INR is therapeutic. FOLLOW UP: They will follow up with orthopedics as scheduled after completion of rehab. All discharge instructions have been reviewed with the patient and verbalized understanding. TIME SPENT: This is a 35 minute discharge. Dictated by PORTIA Ramos for José Luis Hagen MD cc: PORTIA Ramos
[2019-04-03] MEDS: PERIDEX MT SCH (12:07)
[2019-04-03] MEDS: SINGULAIR PO SCH (12:08)
[2019-04-03] MEDS: LANOXIN PO SCH (12:08)
[2019-04-03] MEDS: CARDIZEM LA PO SCH (12:08)
[2019-04-03] MEDS: PEPCID PO SCH (12:08)
[2019-04-03] MEDS: COUMADIN PO SCH (12:08)
[2019-04-03] MEDS: HYDROCHLOROTHIAZIDE PO SCH (12:08)
[2019-04-03] MEDS: COLACE PO SCH (12:08)
[2019-04-03 12:28] VITALS: BP 123/53
[2019-04-03] MEDS ORDERED: DULCOLAX PR ONE (13:49)
--- NOTE | 2019-04-03 20:59 | ORTHOPAEDICS CONSULTATION ---
DATE: 04/03/2019 SUBJECTIVE: Ms. Kennedy is postoperative from ORIF right distal radius and ulnar fractures and a right bipolar hemiarthroplasty. She is sitting up in a bedside chair today and doing well. She is planning to be discharged to a rehab facility today. OBJECTIVE: She is a well developed, well nourished female. She is alert, oriented, and cooperative with the examination, in no acute distress. Her right arm is in a splint and is clean, dry, and intact. Her right leg is grossly neurovascularly intact. ASSESSMENT: 1. Stable postoperative from a right open reduction and internal fixation of right distal radius and ulnar fractures. 2. Stable postoperative from a right hip hemiarthroplasty. PLAN: She is to be discharged to rehab today. We will have her follow up with Dr. Michaud in 1 week. She is to continue to be weightbearing as tolerated on the right lower extremity, and she is to continue to wear her splint on the right side. Dictated by SELENA Rogel for Lisandro Michaud MD cc: SELENA Rogel MD
== END 2019-04-03 17:56 | DRG 956 ==
LOC: P.ED 08:05 → SUATTDRO 11:18 → 4N 11:18
PROVIDERS: ATTEND Internal Medicine
CPT/HCPCS: 36430; 71010; 71045; 73110; 73522; 76000; 80048; 80053; 80162; 85014; 85018; 85025; 85610; 85730; 86850; 86900; 86901; 86920; 87088; 88305; 88311; 93005; 93306; 94761; 94799; 96365; 96375; 96376; 97163; 97530; 99285; A9270; C1762; C9113; C9290; J0131; J0690; J1100; J1170; J1650; J1885; J2270; J2274; J2275; J2370; J2405; J3010; J3370; J3430; J7030; J7120; P9016; P9017; Q9974; S0020; S0164

== ENCOUNTER 2019-06-21 18:54 | Inpatient (IN) ==
--- NOTE | 2019-06-21 19:25 | PROVIDER DOCUMENTATION ---
HPI-Fever - General Stated Complaint: KNEE PAIN Time Seen by Provider: 06/21/19 19:03 Source: patient, RN/MD Allergies/Adverse Reactions: Patient Allergies Allergy/AdvReac Type Severity Reaction Status Date / Time No Known Allergies Allergy Verified 06/21/19 21:23 Home Medications: Home Medication List Medication Instructions Recorded Confirmed Last Taken Type Digoxin [Digitek] 125 mcg PO DAILY 04/02/18 06/21/19 Unknown History Diltiazem HCl [Diltiazem 24Hr ER 180 mg PO DAILY 04/02/18 06/21/19 Unknown History ([place])] Hydrochlorothiazide 12.5 mg PO DAILY 04/02/18 06/21/19 Unknown History Montelukast Sodium [Singulair] 10 mg PO DAILY 04/02/18 06/21/19 Unknown History Warfarin Sodium [Jantoven] 1.5 tab PO DAILY 07/25/18 06/21/19 Unknown History Enoxaparin 1 mg/kg [Lovenox 1 70 mg SUBQ BID #1 order 04/03/19 06/21/19 Unknown Rx mg/kg] Oxycodone I.r. [Oxy Ir] 5 mg PO Q3H PRN PRN tab 04/03/19 06/21/19 Unknown Rx Polyethylene Glycol 3350 [Miralax] 17 gm PO BID powder, packet 04/03/19 06/21/19 Unknown Rx Quetiapine [Seroquel] 12.5 mg PO TID PRN PRN #30 tab 04/03/19 06/21/19 Unknown Rx - History of Present Illness-Fever Nature of Presenting Problem: 83yof present to ER via EMS from [facility] with c/o bilateral knee pain. Pt is very poor historian. According to RN, the report she received was pt c/o bilateral knee pain and had a temp of 99.0 so they referred pt to ER. Pt is being treated for a cellulitis to L lateral upper leg/hip. Pt has previous femur fx to R. Pt appears very anxious. Fever Severity/Quality: reports: greater than 102 F Onset/Duration: reports: unsure Context: reports: confusion, from senior care Fever Therapy LUBRICATOR GRANULATOR: Initiated Tylenol Cognitive Baseline: alert but confused Associated Symptoms: reports: fever/chills. denies: nausea, shortness of breath, vomiting - Glascow Coma Score Best Eye Response ([place]): (4) open spontaneously Best Verbal Response ([place]): (4) confused conversation Best Motor Response ([place]): (4) withdraws to pain Review of Systems - Adult - REVIEW OF SYSTEMS - ADULT Constitutional: reports: see HPI, fever Eyes: reports: no symptoms reported Ears, Nose, Mouth & Throat: reports: no symptoms reported Cardiovascular: reports: no symptoms reported Respiratory: reports: no symptoms reported Gastrointestinal: reports: no symptoms reported. denies: nausea, vomiting Genitourinary: reports: no symptoms reported Musculoskeletal: reports: see HPI, other (bilateral knee pain) Integumentary: reports: see HPI, other (L upper thigh redness and swelling) Neurological: reports: no symptoms reported Psychiatric: reports: no symptoms reported Endocrine: reports: no symptoms reported Hematologic/Lymphatic: reports: no symptoms reported Allergic/Immunologic: reports: no symptoms reported All Other Systems: Reviewed and Negative Past History - Adult - PAST MEDICAL HISTORY-ADULT Review of Records: reports: Old Records Reviewed, Nursing Assessment Review, Medications Reviewed, Social history reviewed & non-contributory. Major Childhood Illnesses: reports: denies history Cardiovascular: reports: A-Fib, HTN Respiratory: reports: denies history Gastrointestinal: reports: cancer (colon) Obstetrical/Gynecological: reports: denies history Genitourinary: reports: denies history Musculoskeletal: reports: denies history Neurological: reports: Alzheimer's, dementia Endocrine/Immune: reports: denies history Other Conditions: reports: denies history - PRIOR SURGERIES/PROCEDURES Surgical/Procedure History: reports: appendectomy, hernia repair - IMMUNIZATION STATUS Childhood Immunizations: See Nurse Assessment Flu Vaccine: See Nurse Assessment - FAMILY HISTORY Family History: reviewed, not pertinent Physical Exam-General - PHYSICAL EXAM-ADULT Exam Limited by: mental status Initial Vital Signs Reviewed: Yes - CONSTITUTIONAL General Appearance: alert, moderate distress, anxious - EYES Eyes: PERRL/EOMI - HEAD, EARS, NOSE, MOUTH & THROAT HENMT: moist mucous membranes - NECK Neck: full range of motion, supple, normal inspection - RESPIRATORY Respiratory: lungs clear, normal breath sounds, no respiratory distress, no accessory muscle use - CARDIOVASCULAR Cardiovascular: tachycardia - GASTROINTESTINAL (ABDOMEN) Abdominal Exam: normal bowel sounds, non tender, soft - MUSCULOSKELETAL Back Exam: normal inspection Extremity: normal range of motion, non-tender, no pedal edema, no calf tenderness, erythema (L lateral upper leg/hip), swelling (L lateral upper leg/hip). negative: deformity Peripheral Pulses: dorsalis-pedis (R): 1+, dorsalis-pedis (L): 1+ - SKIN Integumentary: normal color, warm/dry - PSYCHIATRIC Psych/Mental Status: disoriented x 3, anxious Progress - PLAN OF CARE/RESULTS Progress/Plan/Lab Results: Vital Signs - 8 hr 06/21/19 19:05 06/21/19 19:12 06/21/19 20:30 Temperature 102.6 F H Pulse Rate 125 H 142 H Respiratory Rate 24 23 Blood Pressure 160/98 160/98 O2 Sat by Pulse Oximetry 96 06/21/19 20:45 Temperature Pulse Rate 102 H Respiratory Rate Blood Pressure O2 Sat by Pulse Oximetry 95 Laboratory Results - last 24 hr 06/21/19 06/21/19 06/21/19 20:02 20:02 20:02 WBC 8.83 RBC 4.04 L Hgb 11.7 L Hct 37.3 MCV 92.3 MCH 29.0 MCHC 31.4 L RDW Std Deviation 14.0 Plt Count 353 MPV 10.2 Immature Gran % (Auto) 0.2 Neut % (Auto) 86.6 H Lymph % (Auto) 3.2 L Dickens % (Auto) 8.5 Eos % (Auto) 1.2 Baso % (Auto) 0.3 Immature Gran # (Auto) 0.02 Neut # (Auto) 7.64 H Lymph # (Auto) 0.28 L Dickens # (Auto) 0.75 H Eos # (Auto) 0.11 Baso # (Auto) 0.03 PT INR PTT (Actin FS) Sodium 140 Potassium 4.2 Chloride 101 Carbon Dioxide 25 Anion Gap 14 BUN 21 Creatinine 0.6 Estimated GFR/1.73 m2 > 60 BUN/Creatinine Ratio 35 Glucose 122 H Calculated Osmolality 284 Calcium 9.6 Total Bilirubin 0.66 AST 20 ALT 13 Alkaline Phosphatase 115 H Creatine Kinase 34 Troponin T Total Protein 7.2 Albumin 4.2 Globulin 3.0 Albumin/Globulin Ratio 1.4 Plasma Lactate 1.5 Urine Source Urine Color Urine Turbidity Urine pH Ur Specific [place] Urine Protein Ur Glucose (Stick) Ur Ketones (Stick) Urine Blood Urine Nitrite Urine Bilirubin Urobilinogen Dipstick Urine Leukocytes Urine WBC (Auto) Urine RBC (Auto) U Epithel Cells (Auto) Urine Bacteria (Auto) 06/21/19 06/21/19 06/21/19 20:02 20:02 20:49 WBC RBC Hgb Hct MCV MCH MCHC RDW Std Deviation Plt Count MPV Immature Gran % (Auto) Neut % (Auto) Lymph % (Auto) Dickens % (Auto) Eos % (Auto) Baso % (Auto) Immature Gran # (Auto) Neut # (Auto) Lymph # (Auto) Dick[place] # (Auto) Eos # (Auto) Baso # (Auto) PT 24.7 H INR 2.17 PTT (Actin FS) 33.7 Sodium Potassium Chloride Carbon Dioxide Anion Gap BUN Creatinine Estimated GFR/1.73 m2 BUN/Creatinine Ratio Glucose Calculated Osmolality Calcium Total Bilirubin AST ALT Alkaline Phosphatase Creatine Kinase Troponin T < 0.010 Total Protein Albumin Globulin Albumin/Globulin Ratio Plasma Lactate Urine Source CATH Urine Color YELLOW Urine Turbidity CLEAR Urine pH 6.5 Ur Specific [place] 1.019 Urine Protein NEGATIVE Ur Glucose (Stick) NEGATIVE Ur Ketones (Stick) NEGATIVE Urine Blood MODERATE A Urine Nitrite NEGATIVE Urine Bilirubin NEGATIVE Urobilinogen Dipstick NORMAL Urine Leukocytes NEGATIVE Urine WBC (Auto) <10 Urine RBC (Auto) 10-20 A U Epithel Cells (Auto) <10 Urine Bacteria (Auto) NEGATIVE Orders Category Date Time Status Cardiac Monitoring DIRECTED Care 06/21/19 19:15 Active IV Insertion ORDERED Care 06/21/19 19:15 Completed Notify MD of + Sepsis Screen NOW Care 06/21/19 19:15 Active Notify Physician As Ordered Care 06/21/19 19:15 Active CHEST-1 VIEW [RAD] Stat Exams 06/21/19 19:[address] EXT LOWER LEFT W/O CON [CT] Stat Exams 06/21/19 19:[address] PELVIS W/O CONTRAST [CT] Stat Exams 06/21/19 19:34 Completed BLOOD CULTURE [BLDCUL] Stat Lab 06/21/19 20:02 Results CBC WITH DIFF [HEME] Stat Lab 06/21/19 20:02 Completed CK PROFILE [SP CHEM] Stat Lab 06/21/19 20:02 Completed COMPREHENSIVE METABOLIC PANEL [CHEM] Stat Lab 06/21/19 20:02 Completed LACTATE, PLASMA [CHEM] Lab 06/21/19 22:15 Uncollected LACTATE, PLASMA [CHEM] Lab 06/22/19 01:15 Uncollected LACTATE, PLASMA [CHEM] Q3H Lab 06/21/19 20:02 Completed PROTIME WITH INR [COAG] Stat Lab 06/21/19 20:02 Completed PTT [COAG] Stat Lab 06/21/19 20:02 Completed TROPONIN T Stat Lab 06/21/19 20:02 Completed URINALYSIS W/POSS RFLX CULT [URINALYSIS] Stat Lab 06/21/19 20:49 Completed 0.9% Sodium Chloride Inj [Ns] 1,000 ml Med 06/21/19 19:26 Discontinued IV 999 mls/hr Oxygen Device Stat Oth 06/21/19 19:15 Active Result Diagrams: 06/21/19 20:02 06/21/19 20:02 - REASSESSMENT Reassessment #1 Time Reassessed: 21:28 (family now at bedside, states appears more aggitated than usual. Family concerned about pt if she goes back to [facility] she will not be watched close enough and may have a fall. ) - XRAY 1 XRAY Study: Chest Impression: See EMR Report (COMMENT: There is cardiomegaly. The appearance of the chest has not changed significantly since 03/29/2019. There is some increased interstitial opacity which is probably due to fibrosis as this has not changed. IMPRESSION: Stable chest. Electronically signed by Dre Estrada 06/21/2019 7:37 PM) - CT/MRI 1 CT Study: Pelvis Impression: See EMR Report (COMMENT: There is motion artifact. There is a cyst posteriorly in the right kidney. There is stool throughout the visualized portions of the colon. There is a right hip prosthesis which was not present on 01/08/2010. Beam hardening artifact obscures some bony detail in this area. There is a fat containing left spigelian hernia. There has been previous left inguinal herniorrhaphy. There is a subcutaneous soft tissue density collection lateral to the proximal femur on the left with a CT density of over 54 Houn sfield units. It measures over 7.1 cm transversely. This may represent a hematoma. There is no associated gas. There is no evidence of acute bony abnormality. IMPRESSION: 1. Apparent subcutaneous hematoma on the left. Electronically signed by Dre Estrada 06/21/2019 8:35 PM) 2 CT Study: Lower Ext Impression: See EMR Report (COMMENT: There is a subcutaneous fairly high density collection on the left lateral to the proximal left femur consistent with a hematoma. There are some atherosclerotic calcifications present in the superficial femoral and popliteal arteries. There is no evidence of acute bony abnormality. IMPRESSION: Left subcutaneous hematoma. Electronically signed by Dre Estrada 06/21/2019 8:38 PM) - CONSULTS/PCP/HOSPITALIST Notification #1 *Consult/PCP/Hospitalist*: Dr Vernon Time Discussed: 21:55 Consult Disposition: Will see in ED, Admit Departure - Departure Date of Disposition Decision: 06/21/19 Time of Disposition Decision: 21:55 DIAGNOSIS: Fever Qualifiers: Fever type: unspecified Qualified Code(s): R50.9 - Fever, unspecified AMS (altered mental status) Qualifiers: Altered mental status type: unspecified Qualified Code(s): R41.82 - Altered mental status, unspecified Disposition: ADMITTED INPATIENT 09 Certified Medical Emergency: Emergent Condition: Stable Referrals and Follow-Ups: Brody Escobar MD [Primary Care Provider] - - Critical Care Note This patient required my direct & personal management of CC.: No Attestation - Physician/ KARLY Attestation Patient care was provided by Advanced Practice Provider:: Yes Advanced Practice Provider:: Kathryn Varghese Advanced Practice Provider documentation review:: The Mid-level provider documentation, treatment plan and medical decision making was reviewed by the physician who agrees with all treatment and medical decision making by the MLP. The physician spent face to face time with patient:: No Advanced Practice Provider documentation review:: Supervising physician onsite and consulted in the evaluation and care of this patient. The physician did not have a face to face encounter with the patient.
[2019-06-21] MEDS ORDERED: NS 1,000 ML IV ONE (19:26)
--- NOTE | 2019-06-21 19:39 | Diag Imaging Result Doc PS360 ---
EXAM: CHEST-1 VIEW 06/21/2019 HISTORY: ams, fever TECHNIQUE: AP portable upright at 1930 COMMENT: There is cardiomegaly. The appearance of the chest has not changed significantly since 03/29/2019. There is some increased interstitial opacity which is probably due to fibrosis as this has not changed. IMPRESSION: Stable chest. Electronically signed by Dre Estrada 06/21/2019 7:37 PM
[2019-06-21 20:30] LABS: INR 2.17; PROTIME 24.7 Seconds (11.0-16.0)
[2019-06-21 20:31] LABS: PTT 33.7 Seconds (22.3-41.8)
--- NOTE | 2019-06-21 20:38 | Diag Imaging Result Doc PS360 ---
EXAM: CT PELVIS W/O CONTRAST 06/21/2019 HISTORY: L hip/thigh cellulitis, leg pain TECHNIQUE: This exam was performed using automated exposure control, adjustment of mA or kV according to patient size, and/or use of iterative reconstruction technique. COMMENT: There is motion artifact. There is a cyst posteriorly in the right kidney. There is stool throughout the visualized portions of the colon. There is a right hip prosthesis which was not present on 01/08/2010. Beam hardening artifact obscures some bony detail in this area. There is a fat containing left spigelian hernia. There has been previous left inguinal herniorrhaphy. There is a subcutaneous soft tissue density collection lateral to the proximal femur on the left with a CT density of over 54 Hounsfield units. It measures over 7.1 cm transversely. This may represent a hematoma. There is no associated gas. There is no evidence of acute bony abnormality. IMPRESSION: 1. Apparent subcutaneous hematoma on the left. Electronically signed by Dre Estrada 06/21/2019 8:35 PM
[2019-06-21 20:39] LABS: BASO# 0.03 X1000 (0.0-0.2); BASO% 0.3 % (0.0-0.8); EOS# 0.11 X1000 (0.0-0.7); EOS% 1.2 % (0.0-10.0); HEMATOCRIT 37.3 % (37.0-47.0); HEMOGLOBIN 11.7 g/dL (12.0-16.0); IMM GRAN# 0.02 X1000 (0.0-0.04); IMM GRAN% 0.2 % (0.0-0.5); LYMPH# 0.28 X1000 (1.2-3.4); LYMPH% 3.2 % (20.5-51.1); MCHC 31.4 g/dL (33-37); MCV 92.3 FL (81-99); MONO# 0.75 X1000 (0.11-0.59); MONO% 8.5 % (1.7-9.3); MPV 10.2 FL (7.4-10.4); NEUT# 7.64 X1000 (1.4-6.5); NEUT% 86.6 % (42.2-75.2); PLT 353 X1000 (130-400); RBC 4.04 XMIL (4.2-5.4); WBC 8.83 X1000 (4.8-10.8)
--- NOTE | 2019-06-21 20:40 | Diag Imaging Result Doc PS360 ---
EXAM: CT EXT LOWER LEFT W/O CON 06/21/2019 HISTORY: L hip/thigh cellulitis, leg pain TECHNIQUE: This exam was performed using automated exposure control, adjustment of mA or kV according to patient size, and/or use of iterative reconstruction technique. COMMENT: There is a subcutaneous fairly high density collection on the left lateral to the proximal left femur consistent with a hematoma. There are some atherosclerotic calcifications present in the superficial femoral and popliteal arteries. There is no evidence of acute bony abnormality. IMPRESSION: Left subcutaneous hematoma. Electronically signed by Dre Estrada 06/21/2019 8:38 PM
[2019-06-21 20:59] LABS: URINE SOURCE CATH
[2019-06-21 21:06] LABS: BILIRUBIN URINE NEGATIVE (NEGATIVE); BLOOD URINE MODERATE (NEGATIVE); COLOR YELLOW; GLUCOSE URINE NEGATIVE (NEGATIVE); KETONE URINE NEGATIVE (NEGATIVE); LEUKOCYTES URINE NEGATIVE (NEGATIVE); NITRITE URINE NEGATIVE (NEGATIVE); PH URINE 6.5; PROTEIN URINE NEGATIVE (NEGATIVE); SP GRAVITY URINE 1.019; TURBIDITY URINE CLEAR (CLEAR); UROBILINOGEN URINE NORMAL (NORMAL)
[2019-06-21 21:08] LABS: UR EPITHELIAL CELLS <10 /HPF (<10); URINE BACTERIA NEGATIVE /HPF; URINE WBC <10 /HPF (<10)
[2019-06-21 21:31] LABS: AGAP 14; ALB/GLOB RATIO 1.4; ALBUMIN 4.2 g/dL (3.5-5.0); ALKALINE PHOSPHATASE 115 U/L (32-104); BUN 21 mg/dL (8-22); CALCIUM 9.6 mg/dL (8.8-10.2); CHLORIDE 101 mmol/L (98-107); CK PROFILE 34 U/L (24-173); COSMO 284; CREATININE 0.6 mg/dL (0.5-0.9); ESTIMATED GFR > 60; GLUCOSE 122 mg/dL (70-104); GOT 20 U/L (10-30); GPT 13 U/L (10-36); POTASSIUM 4.2 mmol/L (3.5-5.1); SODIUM 140 mmol/L (136-145); TCO2 25 mmol/L (25-35); TOTAL BILIRUBIN 0.66 mg/dL (0.20-1.00); TOTAL PROTEIN 7.2 g/dL (6.3-8.3)
--- NOTE | 2019-06-21 23:31 | HISTORY AND PHYSICAL ---
PRIMARY CARE PHYSICIAN: Dr. Brody Escobar at [facility]. REASON FOR ADMISSION: Fever and chills today and confusion. HISTORY OF PRESENT ILLNESS: Ms Pop Kennedy is an 83-year-old woman with past medical history of clinical dementia, atrial fibrillation, hypertension, COPD, prior colon cancer, hyperlipidemia, who 2 weeks ago fell and landed on her left hip, at that time, sustained a hematoma on her left lower extremity and her left ear. Since then, this hematoma has been receding in size. However, the patient complains of bilateral knee pain which has been ongoing since then. The patient was brought in today because her daughter went to visit her and noticed that she was more agitated and confused. She was also having chills and subjective fever, at that time. Currently, the patient is less agitated and, other than the pain in her knees, denies any cough, shortness of breath, diarrhea, nausea or vomiting, abdominal pain, genitourinary discomfort. By the way, patient is a very poor historian. No recent change in her home medications, per the daughter. REVIEW OF SYSTEMS: Twelve system review was limited but grossly unremarkable. No contact with anybody with fever. ALLERGIES: No known allergies. HOME MEDICATIONS: She is on Tylenol 600 mg q.6 hours p.r.n., Cardizem 180 mg daily, has been on Keflex 500 mg t.i.d. for cellulitis of the lower extremities, Coumadin 6 mg at bedtime, digoxin 125 mcg daily, Colace 200 mg at bedtime, Dulcolax 10 mg suppository p.r.n., hydrochlorothiazide 12.5 mg daily, Singular 10 mg daily, Seroquel 25 mg daily. SURGICAL HISTORY: Appendectomy, hysterectomy, hernia repair, colon resection for colon cancer. SOCIAL HISTORY: Resident of [facility]. Does not smoke, drink, or use illicit drugs. FAMILY HISTORY: Notable for diabetes, dementia, colon cancer, prostate cancer, heart disease. LABORATORY WORK: Notable for white count 8000, hemoglobin and hematocrit 11 and 37, platelets 353,000; 86% neutrophils. BUN 21, creatinine 0.6. Glucose 122. Troponin negative. PT 24, INR 2.1. Urinalysis shows moderate blood. IMAGING: Chest x-ray film shows increased interstitial opacity, probably due to fibrosis. Lower extremity CT showed left subcutaneous hematoma. Pelvic CT showed the same hematoma noted above with no other gross findings, other than the spigelian hernia and stool throughout most parts of the colon. PHYSICAL EXAMINATION: VITAL SIGNS: Blood pressure was initially 160/98, heart rate 125, temperature 102.6 degrees, respiratory rate was 24. O2 saturation was normal at 96 percent on room air. GENERAL: An elderly woman, not in acute distress, who is alert and oriented to person and place. HEENT: Head is normocephalic, atraumatic. Eyes: MARV, EOMI. He is anicteric. Not pale. ENT: Grossly normal. NECK: Supple. No JVD or carotid bruit. No thyromegaly. CHEST: Good air entry both lung mario with questionable right crepitations in the bases. CARDIOVASCULAR: 1st and 2nd sounds heard. No gallops, murmurs, rubs. Rhythm is irregular. GASTROINTESTINAL: Abdomen is slightly protuberant, soft with no overt areas of tenderness or guarding. No mass or organomegaly appreciated. Bowel sounds are hypoactive. Rectal exam is deferred at this time. EXTREMITIES: The patient has trace lower extremity edema in both lower extremities. No clubbing or peripheral cyanosis. Distal pulse volumes are full, irregular, and symmetrical. NEUROLOGICAL: No tremors. No focal neurological deficits appreciated. SKIN: Intact with brawny discoloration of the shins. MUSCULOSKELETAL: Grossly normal except for the noticeable 16 x 8 hematoma in the left hip area, not tender but somewhat firm in consistency. ASSESSMENT: 1. Fever, tachy, and chills. Probably brewing infection yet to declare itself. Consider a pneumonia or gallbladder problem. CT thorax and abdomen have been ordered and these need to be followed. In the interim, we will cover patient with Zosyn for possible nosocomial pneumonia and/or possible intra-abdominal infection. Continue with fluids. Patient does appear to be in "overt" sepsis at this point in time. 2. Atrial fibrillation with initial rapid rate, but I have attribute this to possible dehydration. Continue digoxin, diltiazem, and Coumadin. Check dig level. Continue with hydration to address this problem. 3. Dehydration. Continue with IV crystalloids. 4. Hypertension. Continue Cardizem although we will hold hydrochlorothiazide due to the fact the patient might be dehydrated. 5. Mild encephalopathy secondary to occult infection. Withhold Seroquel and any potentially neurotoxic medications. 6. If there is no overt source of infection, consider the possibility of hematoma as the source of fever and chills, although this is somewhat unlikely. cc: Philippe De La Garza MD
[2019-06-21] MEDS ORDERED: DULCOLAX PR PRN (23:56)
[2019-06-21] MEDS ORDERED: ZOFRAN IV PRN (23:56)
[2019-06-22] MEDS: PERICOLACE PO SCH ×4 (01:23→22:45)
[2019-06-22] MEDS: NS 1,000 ML IV SCH ×3 (01:23→08:57)
[2019-06-22] MEDS: TYLENOL PO PRN (01:24)
[2019-06-22] MEDS: ZOSYN 3.375 GM in NS 50 ML IV SCH ×2 (01:24→08:57)
--- NOTE | 2019-06-22 07:35 | Diag Imaging Result Doc PS360 ---
EXAM: CT THORAX/ABDOMEN W/O CONTRAST INDICATION: ? RLL PNA TECHNIQUE: This exam was performed using automated exposure control, adjustment of mA or kV according to patient size, and/or use of iterative reconstruction technique. COMPARISON: 01/08/2010 FINDINGS: CHEST: There is bilateral upper lobe bronchiectasis, more prominent on the left. It appears slightly worse than the previous study. No airspace consolidation is identified. There is minimal subsegmental atelectasis at the lung bases. At the medial left lung base, there is stable chronic pleural thickening. There are scattered bilateral calcified granulomata. There is no pleural fluid collection and no pneumothorax. There is cardiomegaly that appears to have worsened previous study. There is no pericardial fluid collection. There are borderline prominent mediastinal lymph nodes mainly in the paratracheal region. However, they appear to be stable. There are calcified hilar lymph nodes indicating prior granulomatous disease. There is no evidence of acute osseous abnormality involving the chest. ABDOMEN: There is excessive motion artifact throughout the abdomen, which may limit sensitivity and specificity. The liver, gallbladder, spleen, pancreas, and adrenal glands are grossly unremarkable as imaged. There are a couple of cyst density lesions associated with the right kidney. The kidneys are grossly unremarkable as imaged, otherwise. There is abundant stool in colon which could indicate constipation. The visualized abdominal segments of the GI tract are grossly unremarkable, otherwise. There is aortoiliac atherosclerotic calcification. There are degenerative changes but there is no evidence of acute osseous abnormality involving the abdomen. IMPRESSION: 1.Bilateral upper lobe bronchiectasis. 2.Mild subsegmental atelectasis at both lung bases and stable chronic pleural thickening at the medial left lung base. 3.No definite acute airspace consolidation. 4.Other incidental/nonacute findings detailed above. No definite acute pathology involving the chest or abdomen, otherwise. Electronically signed by Etienne Mcpherson 06/22/2019 7:32 AM
[2019-06-22 07:47] LABS: BASO# 0.01 X1000 (0.0-0.2); BASO% 0.2 % (0.0-0.8); EOS# 0.01 X1000 (0.0-0.7); EOS% 0.2 % (0.0-10.0); HEMATOCRIT 32.5 % (37.0-47.0); HEMOGLOBIN 9.9 g/dL (12.0-16.0); LYMPH# 0.52 X1000 (1.2-3.4); LYMPH% 11.2 % (20.5-51.1); MCH 28.4 PG (27-31); MCHC 30.5 g/dL (33-37); MCV 93.4 FL (81-99); MONO# 0.87 X1000 (0.11-0.59); MONO% 18.7 % (1.7-9.3); MPV 10.2 FL (7.4-10.4); NEUT# 3.24 X1000 (1.4-6.5); NEUT% 69.7 % (42.2-75.2); PLT 282 X1000 (130-400); RBC 3.48 XMIL (4.2-5.4); RDW 14.2 % (11.5-14.5); WBC 4.65 X1000 (4.8-10.8)
[2019-06-22 07:58] LABS: AGAP 9; ALB/GLOB RATIO 1.1; ALBUMIN 3.1 g/dL (3.5-5.0); ALKALINE PHOSPHATASE 89 U/L (32-104); BUN 17 mg/dL (8-22); CALCIUM 8.3 mg/dL (8.8-10.2); CHLORIDE 105 mmol/L (98-107); COSMO 281; CREATININE 0.6 mg/dL (0.5-0.9); ESTIMATED GFR > 60; GLUCOSE 104 mg/dL (70-104); GOT 18 U/L (10-30); GPT 11 U/L (10-36); MAGNESIUM 2.1 mg/dL (1.5-2.7); POTASSIUM 3.4 mmol/L (3.5-5.1); SODIUM 140 mmol/L (136-145); TCO2 26 mmol/L (25-35); TOTAL BILIRUBIN 0.72 mg/dL (0.20-1.00); TOTAL PROTEIN 5.8 g/dL (6.3-8.3)
[2019-06-22] MEDS: CARDIZEM LA PO SCH (08:57)
[2019-06-22] MEDS: LANOXIN PO SCH (08:57)
[2019-06-22] MEDS ORDERED: VANCOMYCIN IV PER PHARMACY MISC SCH (11:45)
--- NOTE | 2019-06-22 12:25 | PROGRESS NOTE ---
DATE: 06/22/2019 SUBJECTIVE: This morning, Ms. Kennedy referred to be doing fairly okay. Still has some pains in the left hip. The 2 daughters were at the bedside. Ms. Kennedy was admitted to this hospital, and discharged in end of March. At that time, she underwent some orthopedic surgeries for a right femoral neck fracture and a right open distal ulna fracture and comminuted distal ulnar radius fracture. She was sent to [facility] for rehab, and she has been there since then. She is currently in the long-term care, waiting to go to [place] for jail. Unfortunately, I understand 2 weeks ago, she fell trying to go to the bathroom, sustained some injury to the left side. However, since the past couple of days, she has been weak. She has been having some on and off fever, chills, was brought to the emergency room yesterday, was found to have a temperature of 102.6 degrees with a pulse rate of 125. She was found to be septic. She was admitted for medical management. This morning, she feels slightly better. No more fever, but she is still hurting at the left side. OBJECTIVE: Current Vital Signs: Blood pressure is 110/58, pulse of 82, respirations 16, temperature 98.7 degrees, the patient is saturating 100%. General: Ms. Kennedy is an 83-year-old, elderly, female. She is in bed. No distress. HEENT: Mucosa is pink and moist. Anicteric. Acyanotic. Neck: Supple. Chest: Good air entry bilaterally. There are no crepitations, no rhonchi. Cardiovascular: Regular rate and rhythm. Abdomen: Soft, distended, but nontender. Bowel sounds present. Extremities: No pedal edema. Distal pulses present. PERSONAL FITNESS MANAGER: The patient is awake, alert, oriented. Does have some mild cognitive decline. Musculoskeletal: There is a large swelling on the lateral aspect of the left hip. It looks erythematous, is warm to touch, is not fluctuant, but is tender. IMAGING STUDIES: A pelvis CT scan, which shows apparent subcutaneous hematoma on the left. A left lower extremity CT scan also showed left subcutaneous hematoma. ASSESSMENT: 1. Sepsis on presentation secondary to infected hematoma of the left hip. The patient is currently on Zosyn. We have added vancomycin for methicillin-resistant staphylococcus aureus coverage, and we have also consulted Infectious Disease. The CT scan does not seem to suggest any abscess, so we will try the antimicrobials for now and see if there is resolution. If not, we will involve either orthopedics or General Surgery. 2. History of paroxysmal atrial fibrillation. The patient is on digoxin and diltiazem, and she is also on Coumadin for stroke prophylaxis. 3. Hypertension, currently controlled. 4. History of chronic obstructive pulmonary disease. 5. Remote history of colon cancer. In general, Ms. Kennedy seems to be doing slightly better. She does not have any more signs of systemic inflammatory response syndrome. We are still pending the blood cultures. We have added vancomycin to her treatment algorithm, and we have consulted Infectious Disease. cc: Tan Shah MD
[2019-06-22] MEDS ORDERED: VANCOMYCIN 2 GM in NS 500 ML IV ONE (13:00)
--- NOTE | 2019-06-22 14:46 | INFECTIOUS DISEASE CONSULT REP ---
DATE: 06/22/2019 CONCLUSION: The patient was admitted to the hospital with fever, chills and altered mental status, the exact etiology of which is uncertain to me. The patient developed a hematoma on the upper part of her left leg. This was following surgery on the leg, but the hematoma does not appear to me to be infected. She has had a CT scan of the chest which did not show pneumonia and her urinalysis showed no white cells or bacteria and thus I think a urinary tract infection is unlikely. RECOMMENDATION: I discontinued vancomycin and Zosyn and instead substituted Zyvox and cefepime. DISCUSSION: The patient had recently had surgery on her fractured hip. She developed yesterday fever, chills and an altered mental status. Her CBC shows a white count of 4650, hemoglobin 9.9, platelet count 282,000. Creatinine is 0.6, GFR is greater than 60. Liver function studies are normal. Blood cultures are pending. CT scan of the left leg showed a left lateral thigh hematoma. CT scan of the chest, abdomen and pelvis showed bilateral upper lobe bronchiectasis, but no other finding to suggest infection. PAST MEDICAL HISTORY/REVIEW OF SYSTEMS: I was unable to obtain this from the patient. MEDICAL DISEASES: Positive for dementia, atrial fibrillation, hypertension, COPD, colon cancer, hyperlipidemia. The patient, approximately 2 weeks ago, fell and landed on her left hip and at that time she sustained a hematoma. The hematoma has been decreasing in size. PAST SURGICAL HISTORY: The patient has had an appendectomy, hysterectomy, hernia repair, colon resection for colon cancer, and also she had surgery on her left hip when she suffered a severely displaced comminuted fracture of the distal radius and ulna and a right femoral neck fracture. SOCIAL HISTORY: The patient lives in [facility]. She does not smoke cigarettes, drink alcoholic beverages or use illicit drugs. FAMILY HISTORY: Positive for diabetes, dementia, colon cancer, prostate cancer, and heart disease. ALLERGIES: The patient has no known drug allergies. HOME MEDICATIONS: Include Dulcolax, cephalexin, digoxin, Cardizem, hydrochlorothiazide, montelukast, Seroquel, and Coumadin. PHYSICAL EXAMINATION: Vital Signs: Temperature is 98.7 degrees, pulse 82, respirations 16, blood pressure 110/58. The patient is 5 feet 9 inches tall, weighs 185 pounds. General: This is an ill-appearing elderly female. She is in no acute distress. Head/eyes/ears/nose/throat: She can hear my spoken words and see near objects. There is no drainage from her nose or ears. I did not see any white patches on her tongue. Neck: No meningismus. Lungs: Clear to auscultation. Cardiovascular: Heart rate is regular. Abdomen: Soft and nontender. Extremities: On the upper part of the left thigh laterally, there is a hematoma. There is no erythema. The area is not fluctuant, it is more firm, but it is freely movable and it was not tender either. Neurologic: The patient is awake. She can move her extremities. There is no tremor. Integument: No rash. Thank you for the consult. cc: Roberto Bangura MD
[2019-06-22] MEDS: MAXIPIME 2 GM in NS 100 ML IV SCH (18:34)
[2019-06-22] MEDS: ZYVOX PO SCH (18:35)
[2019-06-22] MEDS: COUMADIN PO SCH (22:45)
[2019-06-23] MEDS: ZYVOX PO SCH ×2 (04:24→17:17)
[2019-06-23] MEDS: MAXIPIME 2 GM in NS 100 ML IV SCH ×2 (04:24→20:03)
[2019-06-23 07:25] LABS: HEMATOCRIT 33.1 % (37.0-47.0); HEMOGLOBIN 10.6 g/dL (12.0-16.0); MCV 93.8 FL (81-99); MPV 10.1 FL (7.4-10.4); RBC 3.53 XMIL (4.2-5.4); RDW 14.1 % (11.5-14.5); WBC 4.23 X1000 (4.8-10.8)
[2019-06-23 07:38] LABS: AGAP 9; ALBUMIN 3.2 g/dL (3.5-5.0); BUN 13 mg/dL (8-22); CALCIUM 8.5 mg/dL (8.8-10.2); CHLORIDE 104 mmol/L (98-107); COSMO 277; CREATININE 0.5 mg/dL (0.5-0.9); ESTIMATED GFR > 60; GLUCOSE 94 mg/dL (70-104); PHOSPHORUS 2.8 mg/dL (2.7-4.5); POTASSIUM 3.7 mmol/L (3.5-5.1); SODIUM 139 mmol/L (136-145); TCO2 26 mmol/L (25-35)
[2019-06-23] MEDS: CARDIZEM LA PO SCH (08:15)
[2019-06-23] MEDS: LANOXIN PO SCH (08:15)
[2019-06-23] MEDS: PERICOLACE PO SCH ×2 (08:15→20:03)
--- NOTE | 2019-06-23 12:49 | PROGRESS NOTE ---
DATE: 06/23/2019 SUBJECTIVE: This morning Ms. Kennedy refers to be doing well. Still has some pains into the left hip. OBJECTIVE: Vital signs: Blood pressure is 138/79, pulse 85, respiration is 18, temperature is 98.9. General: Ms. Kennedy is an 83-year-old female. She is in bed. No distress. HEENT: Mucosa is pink and moist. Anicteric. Acyanotic. Neck: Supple. Chest: Good air entry bilateral. There were no crepitations. No rhonchi. Cardiovascular: Regular rate and rhythm. No murmurs, no rubs, no gallops. GI: Abdomen is soft, nontender. Bowel sounds present. Extremities: No pedal edema. There is some swelling over the lateral aspect of the left hip. It is slightly erythematous and warm to touch. No fluctuance. The swelling looks less than yesterday. BEEF CATTLE GRAZIER: Patient is awake, alert and oriented. LABORATORY DATA: WBC is 4.23, hemoglobin is 10.6, platelet count of 228,000. Chemistry is completely normal. So far, blood cultures have been 48 hours negative. MEDICATIONS: The patient is currently on cefepime and Zyvox as antimicrobials. ASSESSMENT: 1. Sepsis on presentation secondary to infected hematoma of the left hip. The patient is on cefepime and Zyvox. The swelling looks to be improving. We are going to continue with the current antimicrobial coverage. The patient is being seen also by Infectious Disease. 2. History of paroxysmal atrial fibrillation, currently in sinus. The patient is on digoxin and diltiazem. She is also on Coumadin for stroke prophylaxis. 3. Chronic obstructive pulmonary disease, currently not in exacerbation. 4. Hypertension, controlled. 5. History of remote colon cancer. 6. Generalized weakness and deconditioning. We have consulted Physical Therapy to evaluate Ms. Kennedy. PLAN: So, in general, I think Ms. Kennedy is doing well. She is on cefepime and Zyvox. Today is day 1 of those antimicrobials. We are going to continue with this. I think it is working. The swelling of the left hip is reducing. We will continue to follow further recommendations from Infectious Disease. cc: Tan Shah MD
[2019-06-23] MEDS ORDERED: VANCOMYCIN 1,400 MG in NS 250 ML IV SCH (13:00)
--- NOTE | 2019-06-23 15:01 | INFECTIOUS DISEASE PROGRESS NO ---
DATE: 06/23/2019 PRESENT ILLNESS: Patient seems to have an infected left thigh hematoma. MEDICATIONS: The patient is on a combination of Zyvox and cefepime. PHYSICAL EXAMINATION: Vital Signs: Temperature is 98.9 degrees, pulse 85, respirations 18, blood pressure 138/79. General: This is an ill-appearing elderly female. She is in no acute distress. Head/eyes/ears/nose/throat: She can hear my spoken words and see near objects. I did not see any white patches on her tongue. Neck: No pain with movement of her neck. Lungs: Clear to auscultation. Cardiovascular: Heart rate is regular. Abdomen: Soft and nontender. Extremities: The patient's hematoma on the left thigh seems to be getting smaller. It is not tender. Neurologic: The patient is awake. She can move her extremities. There is no tremor. LAB AND X-RAY: CT scan shows no pneumonia. The patient's CBC shows a white count of 4230, hemoglobin 10.6, and platelet count 228,000. Creatinine is 0.5, GFR is greater than 60. Blood cultures are negative. Urinalysis showed red cells but no white cells or bacteria. ASSESSMENT AND PLAN: I agree with Dr. Shah that the most likely diagnosis is the patient has an infected left thigh hematoma and appears to be getting better under her current antibiotic treatment. I think if the patient continues to do well tomorrow that she possibly could get sent home on a combination of Omnicef and doxycycline. Doxycycline dose would be 100 mg every 12 hours and the Omnicef dose would be 300 mg p.o. every 12 hours also. I would suggest giving her a 7 day supply of that and the patient can come to my office in a week for followup. COMORBIDITIES: The patient injured her thigh and caused a hematoma. She also is elderly. She also has dementia. cc: Roberto Bangura MD
[2019-06-23] MEDS: COUMADIN PO SCH (20:03)
[2019-06-23] MEDS ORDERED: BENADRYL PO ONE (23:50)
[2019-06-24] MEDS: ZYVOX PO SCH ×2 (06:41→17:47)
[2019-06-24] MEDS: MAXIPIME 2 GM in NS 100 ML IV SCH ×2 (10:15→20:55)
[2019-06-24] MEDS: CARDIZEM LA PO SCH (10:15)
[2019-06-24] MEDS: LANOXIN PO SCH (10:15)
[2019-06-24] MEDS: PERICOLACE PO SCH ×2 (10:15→20:55)
--- NOTE | 2019-06-24 12:38 | PROGRESS NOTE ---
DATE: 06/24/2019 SUBJECTIVE: This morning Ms. Kennedy refers to be doing okay. She was actually sitting up in a chair. No new complaints. OBJECTIVE: Vital signs: Blood pressure is 137/80, pulse of 87, respiration is 17, temperature is 97.8 degrees. Patient was saturating 94% on room air. General: Ms. Kennedy is an 83-year-old female. She was sitting up in a chair, no distress. HEENT: Mucosa is pink and moist. Anicteric. Acyanotic. Neck: Supple. Chest: Clear to auscultation. No crepitations. No rhonchi. Cardiovascular: Regular rate and rhythm. No murmurs, no rubs, no gallops. Gastrointestinal: Abdomen was soft, nontender. Bowel sounds present. Extremities: No pedal edema. Minimal swelling over the lateral aspect of the left hip with some slight erythematous changes. The swelling is remarkably improving. No fluctuance. Central nervous system: Patient is awake, alert, oriented. Shows some cognitive decline. LABORATORY DATA: No laboratory work for today. Patient's blood cultures have been 48 hours negative. ASSESSMENT: 1. Sepsis on presentation secondary to infected left hip hematoma. The patient is currently on cefepime and Zyvox, has been evaluated by ID. Recommendations have been given for p.o. transition when patient is ready for discharge. 2. History of paroxysmal atrial fibrillation, currently in sinus. The patient is on digoxin and Cardizem p.o. She is also on Coumadin for stroke prophylaxis. 3. Chronic obstructive pulmonary disease, currently not in exacerbation. 4. Hypertension, controlled. 5. Generalized weakness and deconditioning. Physical Therapy has been consulted. 6. Remote history of colon cancer. PLAN: In general, I think Ms. Kennedy is doing well. She was evaluated by Physical Therapy today. She was able to do 25 feet with minimum assist. She was sitting in a chair at the time of the encounter. She refers to be doing well. We are going to continue with the current antimicrobial coverage. She is a resident of a senior living so would have to wait until Wednesday to be able to get her back to the senior living. cc: Tan Shah MD
[2019-06-24] MEDS: COUMADIN PO SCH (20:56)
[2019-06-25] MEDS: ZYVOX PO SCH ×2 (04:22→17:49)
[2019-06-25] MEDS: MAXIPIME 2 GM in NS 100 ML IV SCH ×2 (08:03→19:56)
[2019-06-25] MEDS: LANOXIN PO SCH (08:03)
[2019-06-25] MEDS: PERICOLACE PO SCH ×2 (08:03→20:04)
--- NOTE | 2019-06-25 09:31 | PROGRESS NOTE ---
DATE: 06/25/2019 SUBJECTIVE: This morning, Ms. Kennedy refers to be doing okay. No new complaints. OBJECTIVE: Vital Signs: Blood pressure is 138/85, pulse of 97, respirations are 16, temperature is 97.8 degrees. General Examination: Ms. Kennedy is an 83-year-old, female. She is in bed. No distress. Mucosa is pink and moist. Anicteric. Acyanotic. Neck: Supple. Chest: Clear to auscultation. No crepitations. No rhonchi. Cardiovascular: Regular rate and rhythm. Abdomen: Soft, nontender. Bowel sounds present. Extremities: No pedal edema. Distal pulses present. Musculoskeletal: The patient has mild erythematous changes and swelling over the left lateral hip. Laboratory Data: None for today. ASSESSMENT: 1. Sepsis on presentation secondary to infected left hip hematoma. Swelling is getting better. 2. History of paroxysmal atrial fibrillation, currently in sinus and regular rate. The patient is on digoxin and Cardizem. 3. Coumadin anticoagulation for stroke prophylaxis. We will continue to monitor the INR. 4. Chronic obstructive pulmonary disease, currently not in exacerbation. 5. Hypertension. 6. Generalized weakness and deconditioning. Physical therapy on board. 7. Remote history of colon cancer. 8. Alzheimer's dementia. PLAN: In general, I think Ms. Kennedy is doing a lot better. The left hip swelling has significantly improved. There is a recommendation from ID to switch her to Omnicef and doxycycline for outpatient treatment. Ms. Kennedy is a resident of [facility] and we hope to discharge her back there tomorrow. cc: Tan Shah MD
[2019-06-25] MEDS: CARDIZEM LA PO SCH (10:44)
--- NOTE | 2019-06-25 14:41 | INFECTIOUS DISEASE PROGRESS NO ---
DATE: 06/25/2019 PRESENT ILLNESS: The patient is felt to have an infected left thigh hematoma. MEDICATIONS: The patient is receiving Zyvox and cefepime. PHYSICAL EXAMINATION: Vital Signs: Temperature is 98.1 degrees, pulse 74, respirations 16, blood pressure 133/79. General: This is an ill-appearing elderly female. She is in no acute distress, but she told me she just does not feel good now. Head/eyes/ears/nose/throat: She can hear my spoken words and see near objects. I did not see any white coating of her tongue. Neck: No pain with movement. Lungs: Clear to auscultation. Cardiovascular: Regular heart rate. Abdomen: Soft and nontender. Extremities: The patient's heme on the left thigh to me today seems to be bigger. It is not very tender and there is no erythema around it. Neurologic: The patient is awake. She can move her extremities. There is no tremor. LAB AND X-RAY: There is no new lab or x-ray for today. ASSESSMENT AND PLAN: I have discussed the patient's case with Dr. Shah. We are going to get a noncontrasted CT scan of the left thigh today and a CBC and BMP tomorrow morning. If the mass seems to be getting smaller and there is not an abscess found, then we will continue with antibiotics and possibly even send the patient home on oral antibiotics such as a combination of Omnicef and doxycycline. If the left thigh mass isn't getting any smaller or especially if it is getting bigger or appears to have an abscess, we will consult surgery. COMORBIDITIES: Patient injured her thigh with a resulting hematoma. The patient is elderly and she has dementia. cc: Roberto Bangura MD
--- NOTE | 2019-06-25 16:09 | Diag Imaging Result Doc PS360 ---
EXAM: CT EXT LOWER LEFT W/O CON - 06/25/2019 HISTORY: L thigh mass TECHNIQUE: CT left thigh without contrast. No contrast administered per request of the referring provider. COMPARISON: 06/21/2019 FINDINGS: There is a 6.6 x 7.1 cm lobulated, mildly hyperdense mass at the lateral proximal thigh. This measured 6.4 x 7.6 cm on the prior exam. This is suspicious for hematoma. There is no abnormal subcutaneous gas collection or low density fluid collection identified. The visualized bony structures show no evidence of fracture. There are no bony erosive or destructive changes identified. IMPRESSION: Subcutaneous hematoma at lateral proximal left thigh is similar to prior. This exam was performed using automated exposure control, adjustment of mA or kV according to patient size, and/or use of iterative reconstruction technique. Electronically signed by Gerard Mcnamara 06/25/2019 4:07 PM
[2019-06-25] MEDS: COUMADIN PO SCH (20:03)
[2019-06-26] MEDS: TYLENOL PO PRN (02:35)
[2019-06-26] MEDS: ZYVOX PO SCH (06:18)
[2019-06-26 07:30] LABS: BASO# 0.02 X1000 (0.0-0.2); BASO% 0.4 % (0.0-0.8); EOS# 0.18 X1000 (0.0-0.7); EOS% 3.6 % (0.0-10.0); HEMATOCRIT 33.4 % (37.0-47.0); HEMOGLOBIN 10.4 g/dL (12.0-16.0); LYMPH# 1.41 X1000 (1.2-3.4); LYMPH% 28.1 % (20.5-51.1); MCH 28.5 PG (27-31); MCHC 31.1 g/dL (33-37); MCV 91.5 FL (81-99); NEUT% 55.9 % (42.2-75.2); PLT 216 X1000 (130-400); RBC 3.65 XMIL (4.2-5.4); RDW 13.3 % (11.5-14.5); WBC 5.01 X1000 (4.8-10.8)
[2019-06-26 07:37] LABS: INR 2.46; PROTIME 27.4 Seconds (11.0-16.0)
[2019-06-26 07:50] LABS: AGAP 11; BUN 8 mg/dL (8-22); CALCIUM 8.7 mg/dL (8.8-10.2); CHLORIDE 104 mmol/L (98-107); COSMO 278; CREATININE 0.4 mg/dL (0.5-0.9); ESTIMATED GFR > 60; GLUCOSE 105 mg/dL (70-104); POTASSIUM 3.6 mmol/L (3.5-5.1); SODIUM 140 mmol/L (136-145); TCO2 25 mmol/L (25-35)
[2019-06-26] MEDS: PERICOLACE PO SCH (08:45)
[2019-06-26] MEDS: CARDIZEM LA PO SCH (08:45)
[2019-06-26] MEDS: LANOXIN PO SCH (08:45)
[2019-06-26] MEDS: MAXIPIME 2 GM in NS 100 ML IV SCH (08:45)
--- NOTE | 2019-06-26 10:44 | DISCHARGE SUMMARY ---
ADMISSION DATE: 06/21/2019 DISCHARGE DATE: 06/26/2019 DISPOSITION: Back to [facility]. FOLLOW-UP: 1. Dr. Brody Escobar. 2. Dr. Bangura. CONSULTATION DURING THIS ADMISSION: ID was consulted. Patient was seen by Dr. Bangura. BASIC PROCEDURES DONE DURING THIS ADMISSION: None. IMAGING STUDIES OF SIGNIFICANCE: 1. A CT scan of the left lower extremity was done which showed left subcutaneous hematoma. 2. A CT scan of the chest, abdomen and pelvis shows bilateral upper lobe bronchiectasis, some pleural thickening, but no acute pathology. 3. A repeat lower extremity CT scan showed subcutaneous hematoma at the lateral proximal left which is similar to prior. ADMISSION DIAGNOSES: 1. Fever tachy and chills. 2. Atrial fibrillation with initial rapid rate on admission. 3. Dehydration. 4. Hypertension. 5. Mild encephalopathy. DIAGNOSES AT THE TIME OF DISCHARGE: 1. Sepsis on presentation secondary to infected left hip hematoma. 2. Mild altered mental status, presumably due to infectious encephalopathy on background dementia. 3. History of paroxysmal atrial fibrillation. 4. Coumadin anticoagulation for stroke prophylaxis. 5. Left hip hematoma after fall. 6. Chronic obstructive pulmonary disease currently not in exacerbation. 7. Hypertension. 8. Generalized weakness and deconditioning. 9. Alzheimer's dementia. 10. Remote history of colon cancer. DISCHARGE MEDICATIONS: 1. Diltiazem 180 p.o. daily. 2. Colace. 3. Hydrochlorothiazide 12.5 daily. 4. Seroquel 25 mg p.o. daily. 5. Coumadin 6 mg p.o. q p.m. 6. Digoxin 125 mcg p.o. daily. 7. Josephine-Colace. 8. Doxycycline 100 mg b.i.d. 9. Cefdinir 300 b.i.d. PRESENTING COMPLAINT: Fever, chills and some confusion. HISTORY OF PRESENTING COMPLAINT: Ms. Kennedy is an 83-year-old female with a history of multiple comorbidities including atrial fibrillation, dementia, COPD, colon cancer, came to the emergency department because of fever, chills and some confusion. According to the family Ms. Kennedy has also fallen down about 2 weeks prior and had developed swelling to the left hip. Upon presenting, she was evaluated. Initially, was found to be tachycardic with a pulse of 125 and febrile with a temperature of 102.6 degrees. She was thought to be septic and was admitted for further medical care. HOSPITAL COURSE: Ms. Kennedy was admitted to the medical floor, was adequately fluid resuscitated, was started on broad-spectrum IV antibiotics. Cultures were done. Blood cultures came back 48 hours negative. The patient was consulted with ID. During the hospital course Ms. Kennedy's mentation got better, back got to the baseline and she did not have any more fever. At some point, there was concern that her left leg swelling could have been getting bigger, so repeat CT scan was done yesterday, which remains similar to prior with no fluctuation, no abscess formation. Ms. Kennedy continues to be afebrile with stable hemodynamics. They have already a recommendation from ID to do outpatient Omnicef and doxycycline. Patient has been started on those. Ms. Kennedy has also been evaluated by physical therapy on the . She was able to do 25 feet with minimum assist. This morning Ms. Kennedy refers to be doing fairly okay and no new complaints. VITAL SIGNS: Her current vitals blood pressure is 155/82, pulse is 73, respirations 21, temperature 98.1 degrees. The patient is saturating 99% on room air. Clinically stable. We think she is back to her baseline. Her left hip swelling continues to be there. The erythematous changes has significantly improved. The CT scan confirms that this is hematoma and we think it is going to take some time to completely resolve. We think the superimposed infection/cellulitis has significantly improved and that he should do well on the oral antimicrobial. Ms. Kennedy is therefore being discharged back to the [facility]. All the discharge instructions discussed with her. TIME SPENT FOR DISCHARGE: 35 minutes. cc: MD Roberto Mason MD Kirk L. Jackson, MD
[2019-06-26 11:48] VITALS: BP 148/81
--- NOTE | 2019-06-26 18:12 | INFECTIOUS DISEASE PROGRESS NO ---
DATE: 06/26/2019 The patient is to be discharged today. She will be taking the following antibiotics: Omnicef 300 mg every 12 hours and doxycycline 100 mg p.o. every 12 hours and both for 7 more days. I am signing off the patient's case. cc: Roberto Bangura MD
[2019-06-26] MEDS ORDERED: DOXYCYCLINE PO SCH (21:00)
[2019-06-26] MEDS ORDERED: OMNICEF PO SCH ×2 (21:00)
== END 2019-06-26 16:03 | DRG 871 ==
LOC: EDSEX → SUPCPDRO → ED 18:54 → 3N 23:04 → SUATTDRO 23:04
PROVIDERS: ATTEND Internal Medicine